=== PATIENT | female | born 1935 | race Caucasian/White ===

== ENCOUNTER 2018-10-01 22:22 | Observation (INO) ==
[2018-10-01] MEDS ORDERED: CATAPRES PO ONE (22:46)
[2018-10-01] MEDS ORDERED: APRESOLINE IV ONE (22:49)
[2018-10-01] MEDS ORDERED: CATAPRES ONE (22:54)
--- NOTE | 2018-10-01 22:56 | PROVIDER DOCUMENTATION ---
HPI-General Adult - General Chief Complaint: B/P Problems Stated Complaint: B/P 253/95 @2140 Time Seen by Provider: 10/01/18 22:45 Source: patient Allergies/Adverse Reactions: Patient Allergies Allergy/AdvReac Type Severity Reaction Status Date / Time Penicillins Allergy Severe HIVES Verified 09/18/17 17:48 Home Medications: Home Medication List Medication Instructions Recorded Confirmed Last Taken Type Risperidone [Risperdal] 1.5 mg PO HS 12/16/12 08/10/18 09/29/17 History Atorvastatin Calcium [Lipitor] 40 mg PO DAILY 09/18/17 08/10/18 09/29/17 History Cyanocobalamin (Vitamin B-12) 1 tab PO DAILY 09/19/17 08/10/18 09/29/17 History [Vitamin B-12] Ergocalciferol (Vitamin D2) 50,000 unit PO DIRECTED 09/19/17 08/10/18 09/29/17 History [Vitamin D2] Oxybutynin Chloride [Oxybutynin 10 mg PO DAILY 09/19/17 08/10/18 09/29/17 History Chloride ER] Psyllium [Metamucil Powder Packet] 1 packet PO EVERY OTHER DAY 09/19/17 08/10/18 09/29/17 History Omeprazole [Prilosec] 40 mg PO DAILY 09/20/17 08/10/18 09/29/17 History Apixaban [Eliquis] 5 mg PO BID #60 tab 09/23/17 08/10/18 09/29/17 Rx Metoprolol Succinate E.r. [Toprol 1 tab PO BID #60 tab 09/23/17 08/10/18 09/29/17 Rx Xl] Amiodarone [Cordarone] 200 mg PO DAILY 09/29/17 08/10/18 09/29/17 History Amlodipine Besylate 1 tab PO DAILY 08/10/18 08/10/18 Unknown History Hydrochlorothiazide 1 tab PO DAILY 08/10/18 08/10/18 Unknown History Levothyroxine [Synthroid] 1 tab PO DAILY 08/10/18 08/10/18 Unknown History Prednisone 20 mg PO DAILY #3 tab 08/10/18 Unknown Rx - History of Present Illness -Gen Adult Nature of Presenting Problems: 82 YOF PRESENTS WITH C/O HTN, BLURRED VISION AND HEADACHE SHE REPORTS HER PCP HAS BEEN ADJUSTING HER BP MEDICATIONS AND THE LAST WEEK HER BP HAS BEEN > 200 SINCE LAST WEEK. SHE DEVELOPED BLURRED VISION TODAY AND HER DAUGHTERS BROUGHT HER IN TO THE ER. SHE DENIES CP, SOB, FEVER, CHILLS, N/V/D, FOCAL WEAKNESS. Location of Pain/Injury: reports: none Quality of Pain: reports: none Onset/Duration: reports: 4-6 hours ago (BLURRED VISION), 1 week ago (HTN) Timing: reports: still present Context/Activities at Onset: reports: light activity Modifying Factors: improves with: nothing Associated Symptoms: reports: denies symptoms Similar Symptoms Previously?: No Recently seen or treated by another doctor?: Yes (PCP) Review of Systems - Adult - REVIEW OF SYSTEMS - ADULT Constitutional: reports: no symptoms reported. denies: see HPI, chills, fever, fatique, night sweats, weight gain, weight loss, other Eyes: reports: see HPI, blurred vision. denies: no symptoms reported, dischar ge, dry eyes, decreased vision, double vision, eye pain, redness, other Ears, Nose, Mouth & Throat: reports: no symptoms reported. denies: see HPI, ear discharge, ear pain, hearing loss, tinnitus, epistaxis, sinus problem, nose pain, loose teeth, mouth/dental pain, mouth swelling, hoarseness, throat pain, throat swelling, other Cardiovascular: reports: no symptoms reported. denies: see HPI, chest pain, edema, heart murmur, irregular heart rate, orthopnea, palpitations, poor circulation, PND, syncope, other Respiratory: reports: no symptoms reported. denies: see HPI, chronic cough, cough, dyspnea on exertion, excessive sputum production, hemoptysis, pleurisy, shortness of breath, wheezing, other Gastrointestinal: reports: no symptoms reported. denies: see HPI, abdominal pain, hematemesis, constipation, diarrhea, difficulty swallowing, frequent heartburn, nausea, poor appetite, rectal bleeding, vomiting, other Genitourinary: reports: no symptoms reported. denies: see HPI, dysuria, discharge, frequency, flank pain, frequent UTI's, hematuria, hesitency, inco ntinence, urinary retention, urgency, other Musculoskeletal: reports: no symptoms reported. denies: see HPI, bone pain, back pain, frequent leg cramps, joint pain, joint swelling, muscle aches, muscle weakness, neck pain, other Integumentary: reports: no symptoms reported. denies: see HPI, hives, hair loss, itching, mole changes, nail changes, rash, skin sores/ulcer, skin thickening, other Neurological: reports: headache/migraines. denies: no symptoms reported, see HPI, ataxia, dizziness/vertigo, loss of balance, numbness, paresthesia, seizure, slurred speech, syncope, tremors, other Psychiatric: reports: no symptoms reported. denies: see HPI, anxiety, anti- depressant use, alcohol/drug dependence, depression, emotional problems, insomnia, panic attacks, suicidal thoughts, other Endocrine: reports: no symptoms reported. denies: see HPI, change in skin pigment, excessive sweating, goiter, cold intolerance, heat intolerance, increased hunger, increased thirst, polyuria, other Hematologic/Lymphatic: reports: no symptoms reported. denies: see HPI, blood clots, easy bruising, low blood count, lymphedema, prolonged bleeding, swollen lymph nodes, transfusions, other Allergic/Immunologic: reports: no symptoms reported. denies: see HPI, allergic reactions, allergic rhinitis, asthma, eczema, food allergy, frequent infections, hay fever, hives, positive PPD, urticaria, other Past History - Adult - PAST MEDICAL HISTORY-ADULT Review of Records: reports: Nursing Assessment Review, Social history reviewed & non-contributory. Major Childhood Illnesses: reports: other Cardiovascular: reports: A-Fib, HTN, hyperlipidemia Respiratory: reports: denies history Gastrointestinal: reports: GERD Obstetrical/Gynecological: reports: denies history Genitourinary: reports: denies history Musculoskeletal: reports: denies history Neurological: reports: denies history Endocrine/Immune: reports: denies history Other Conditions: reports: denies history - PRIOR SURGERIES/PROCEDURES Surgical/Procedure History: reports: cholecystectomy - IMMUNIZATION STATUS Childhood Immunizations: See Nurse Assessment Flu Vaccine: See Nurse Assessment - FAMILY HISTORY Family History: reviewed, not pertinent Physical Exam-General - PHYSICAL EXAM-ADULT Initial Vital Signs Reviewed: Yes - CONSTITUTIONAL General Appearance: appears well, alert, no apparent distress - EYES Eyes: PERRL/EOMI - HEAD, EARS, NOSE, MOUTH & THROAT HENMT: normocephalic/atraumatic, moist mucous membranes, normal ENT inspection - NECK Neck: non-tender, full range of motion, supple - RESPIRATORY Respiratory: chest non-tender, lungs clear, normal breath sounds, no pleuratic chest pain, no respiratory distress - CARDIOVASCULAR Cardiovascular: normal peripheral pulses, regular rate, rhythm, no edema, no gallop, no JVD, no murmur - GASTROINTESTINAL (ABDOMEN) Abdominal Exam: normal bowel sounds, non tender, soft - LYMPHATIC Lymphatic: no adenopathy - MUSCULOSKELETAL Back Exam: normal inspection Extremity: normal range of motion, non-tender, normal gait - SKIN Integumentary: normal color, normal turgor, warm/dry - NEUROLOGIC Neurologic: grossly normal - PSYCHIATRIC Psych/Mental Status: normal mood/affect, oriented x 3 Progress - PLAN OF CARE/RESULTS Progress/Plan/Lab Results: Vital Signs - 8 hr 10/01/18 22:25 Temperature 98.0 F Pulse Rate 73 Respiratory Rate 18 Blood Pressure 239/108 O2 Sat by Pulse Oximetry 97 Orders Category Date Time Status Saline Loc NOW Care 10/01/18 22:[address] HEAD W/O CONTRAST [CT] Stat Exams 10/01/18 22:46 Ordered CBC WITH ELECTRONIC DIFF [HEME] Stat Lab 10/01/18 22:46 Uncollected COMPREHENSIVE METABOLIC PANEL [CHEM] Stat Lab 10/01/18 22:46 Uncollected PROTIME WITH INR [COAG] Stat Lab 10/01/18 22:46 Uncollected PTT [COAG] Stat Lab 10/01/18 22:46 Uncollected TROPONIN T Stat Lab 10/01/18 22:46 Ordered Clonidine [Catapres] Med 10/01/18 22:46 Stop Req 0.1 mg PO NOW ONE Hydralazine [Apresoline] Med 10/01/18 22:49 Once 20 mg IV NOW ONE EKG [EKG] Stat Ther 10/01/18 22:29 Ordered EKG [EKG] Stat Ther 10/01/18 22:46 Ordered 0015: DISCUSSED PRESENTATION INCLUDING EARLIER BLURRED VISION, BP ON ARRIVAL, HOME BP'S, LABS AN CURRENT BP WITH DR LEVY. SHE RECOMMENDS DISCHARGE WITH FOLLOW UP WITH PCP. THE PATIENT IS IN AGREEMENT WITH THIS PLAN, ARE HER DAUGHTERS AT BEDSIDE Result Diagrams: 10/01/18 23:08 10/01/18 23:08 - REASSESSMENT Reassessment #1 Time Reassessed: 00:00 (PT DENIES ALL SYMPTOMS CURRENTLY, SHE IS REQUESTING DC AFTER CT RESULTS ) Status: improving - EKG 1 Time of EKG reading by physician:: 22:49 EKG Read and Signed by:: Fawn Levy EKG Interpretation (*Must complete 3 of following elements*): Abnormal Rate: 60 Rhythm: ATRIAL PACED Pharr: normal QRS: RBB ND Interval: normal ST Wave: normal - CT/MRI 1 CT Study: Head Impression: Abnormal (MILD NONSPECIFIC PERIVENTRICULAR DEEP WHITE MATTER DISEASE ENCEPHALOMALACIA R TEMPORAL LOBE. THIS REPRESENTS OLD ISCHEMIC EVENT) Departure - Departure Date of Disposition Decision: 10/02/18 Time of Disposition Decision: 00:25 DIAGNOSIS: Hypertension Disposition: HOME 01 Certified Medical Emergency: Emergent Condition: Stable Additional Freetext Instructions: ED Follow Up Instructions:CALL YOUR PCP IN THE MORNING IF YOU DEVELOP NEW SYMPTOMS INCLUDING CP, SEVERE HEADACHE, BLURRED VISION OR OTHER SYMPTOMS RETURN TO THE ER You have been treated by a care provider in the Emergency Department. These instructions are being provided to you so you can have an understanding of how to care for yourself upon discharge. Upon discharge from the Emergency Department, you are responsible for making arrangements for follow-up care by a physician of your choice. Take all prescribed medications as directed. Return to the Emergency Department immediately for any new or worsening symptoms. You may call the Physician Referral phone number at [phone] to obtain a list of Physicians who are taking new patients. Referrals and Follow-Ups: Mak Camara MD [Primary Care Provider] - Discharge Education: Hypertension, [id number] - Critical Care Note This patient required my direct & personal management of CC.: No Attestation - Physician/ OWEN Attestation Patient care was provided by Advanced Practice Provider:: Yes Advanced Practice Provider:: Lilly Fry Advanced Practice Provider documentation review:: The Mid-level provider documentation, treatment plan and medical decision making was reviewed by the physician who agrees with all treatment and medical decision making by the MLP. The physician spent face to face time with patient:: No Advanced Practice Provider documentation review:: Supervising physician onsite and consulted in the evaluation and care of this patient. The physician did not have a face to face encounter with the patient.
[2018-10-01 23:28] LABS: BASO# 0.03 X1000 (0.0-0.2); BASO% 0.7 % (0.0-0.8); EOS# 0.13 X1000 (0.0-0.7); EOS% 2.9 % (0.0-10.0); HEMATOCRIT 38.2 % (37.0-47.0); LYMPH# 0.89 X1000 (1.2-3.4); MCH 28.8 PG (27-31); MCV 84.5 FL (81-99); MONO# 0.37 X1000 (0.11-0.59); MONO% 8.3 % (1.7-9.3); MPV 10.7 FL (7.4-10.4); NEUT# 3.02 X1000 (1.4-6.5); NEUT% 68.1 % (42.2-75.2); PLT 134 X1000 (130-400); RBC 4.52 XMIL (4.2-5.4); RDW 13.6 % (11.5-14.5); WBC 4.44 X1000 (4.8-10.8)
--- NOTE | 2018-10-01 23:43 | EKG Report ---
Test Performed on : 10/01/2018 10:49:40 PM Test Reason : HTN, BLURRED VISIO Blood Pressure : / mmHG Vent. Rate : 060 BPM Atrial Rate : 060 BPM P-R Int : 170 ms QRS Dur : 146 ms QT Int : 482 ms P-R-T Axes : 079 022 012 degrees QTc Int : 482 ms Poor data quality, interpretation may be adversely affected Atrial-paced rhythm Right bundle branch block Abnormal ECG When compared with ECG of 20-DEC-2017 00:25, Criteria for Anterior infarct are no longer present Criteria for Inferior infarct are no longer present Unconfirmed Result
[2018-10-01 23:49] LABS: AGAP 9; ALBUMIN 4.2 g/dL (3.5-5.0); ALKALINE PHOSPHATASE 113 U/L (32-104); BUN 12 mg/dL (8-22); CALCIUM 8.4 mg/dL (8.8-10.2); CHLORIDE 106 mmol/L (98-107); COSMO 282; CREATININE 0.7 mg/dL (0.5-0.9); ESTIMATED GFR > 60; GLUCOSE 122 mg/dL (70-104); GOT 23 U/L (10-30); GPT 16 U/L (10-36); POTASSIUM 3.9 mmol/L (3.5-5.1); SODIUM 141 mmol/L (136-145); TCO2 26 mmol/L (25-35); TOTAL PROTEIN 6.3 g/dL (6.3-8.3)
[2018-10-01 23:55] LABS: INR 1.06; PROTIME 14.3 Seconds (11.0-16.0)
[2018-10-01 23:56] LABS: PTT 30.9 Seconds (22.3-41.8)
[2018-10-02] MEDS ORDERED: TYLENOL PO ONE (00:54)
[2018-10-02] MEDS ORDERED: ZOFRAN IV ONE (01:24)
[2018-10-02] MEDS ORDERED: APRESOLINE IV PRN (04:51)
[2018-10-02 06:19] LABS: BILIRUBIN URINE NEGATIVE (NEGATIVE); BLOOD URINE NEGATIVE (NEGATIVE); CLARITY SL. CLOUDY (CLEAR); COLOR YELLOW; GLUCOSE URINE NEGATIVE (NEGATIVE); KETONE URINE 1+(Small) mg/dL (NEGATIVE); LEUKOCYTES URINE NEGATIVE (NEGATIVE); NITRITE URINE NEGATIVE (NEGATIVE); PROTEIN URINE NEGATIVE (NEGATIVE); UROBILINOGEN URINE NORMAL
[2018-10-02 06:20] LABS: URINE BACTERIA 4+ /HFP
[2018-10-02 06:22] LABS: URINE CAST NONE SEEN /LPF; URINE CRYSTAL NONE SEEN /HPF; URINE EPITHELIAL CELLS <10 /HPF (<10); URINE RBC <10 /HPF (<10); URINE SOURCE CLEAN CATCH; URINE YEAST NONE SEEN /HPF
--- NOTE | 2018-10-02 07:15 | Diag Imaging Result Doc PS360 ---
EXAM: CT HEAD W/O CONTRAST - 10/01/2018 HISTORY: HTN, BLURRED VISION TECHNIQUE: CT head without contrast COMPARISON: 12/20/2017 FINDINGS: There is encephalomalacia at the right temporal lobe which is stable and compatible with old infarct. There are mild chronic microvascular ischemic changes. There is no indication of recent infarct, although acute infarcts may not be immediately visible. There is no evidence of intracranial hemorrhage, mass effect, midline shift, or hydrocephalus. There is no evidence of skull fracture. Visualized portions of paranasal sinuses and mastoid air cells appear clear. IMPRESSION: Chronic ischemic changes similar to prior. No visible acute intracranial abnormality. The on-call radiologist provided preliminary results at 11:46 PM on 10/01/2018. This exam was performed using automated exposure control, adjustment of mA or kV according to patient size, and/or use of iterative reconstruction technique. Electronically signed by Romario Silva 10/02/2018 7:13 AM
--- NOTE | 2018-10-02 07:55 | EKG Report ---
Test Performed on : 10/02/2018 07:39:38 AM Test Reason : bp high Blood Pressure : / mmHG Vent. Rate : 081 BPM Atrial Rate : 081 BPM P-R Int : 184 ms QRS Dur : 128 ms QT Int : 470 ms P-R-T Axes : 059 069 003 degrees QTc Int : 545 ms Normal sinus rhythm. Right bundle branch block Septal infarct , age undetermined Abnormal ECG When compared with ECG of 01-OCT-2018 22:49, (Unconfirmed) Sinus rhythm. has replaced Electronic atrial pacemaker QT has lengthened Confirmed by Tony Suarez MD ([id number]) on 10/06/2018 11:28:54 AM
--- NOTE | 2018-10-02 08:12 | Diag Imaging Result Doc PS360 ---
EXAM: CHEST-PORTABLE - 10/02/2018 HISTORY: "cough" TECHNIQUE: Portable chest COMPARISON: 12/20/2017 FINDINGS: Heart size is within normal limits. There is transvenous cardiac pacemaker again seen. There is mild left lower lung linear atelectasis or scarring. There is mild prominence of interstitial markings compared to prior, most prominent on the right. There is no dense consolidation, pleural effusion, or pneumothorax identified. IMPRESSION: Apparent mild interstitial infiltrates, most conspicuous on the right. Electronically signed by Romario Silva 10/02/2018 8:10 AM
[2018-10-02] MEDS ORDERED: TESSALON PO PRN (08:39)
[2018-10-02] MEDS: THERA M PLUS PO SCH (09:46)
[2018-10-02] MEDS: TOPROL XL PO SCH ×2 (09:46→20:46)
[2018-10-02] MEDS: VITAMIN B-12 PO SCH (09:46)
[2018-10-02] MEDS: TYLENOL PO PRN ×2 (09:47→20:55)
[2018-10-02] MEDS: SYNTHROID PO SCH (09:47)
[2018-10-02] MEDS: ELIQUIS PO SCH ×2 (09:47→20:45)
--- NOTE | 2018-10-02 12:46 | HISTORY AND PHYSICAL ---
PRIMARY CARE PROVIDER: DR. Camara. CHIEF COMPLAINT: Headache, high blood pressure. HISTORY OF PRESENT ILLNESS: Ms. Lange is an 82-year-old, female who carries a past medical history of atrial fibrillation, hypertension, hyperlipidemia, GERD, chronic UTIs, a right internal carotid artery with 100% occlusion, who reported to the ED complaining of BP problems and headache as well as dizziness and blurred vision. She reported her primary has been adjusting her blood pressure medications. In the last week, her blood pressure had been greater than 200. Initially, after medications, the patient's symptoms resolved and was requesting to be discharged home. However, shortly after midnight, the patient's blood pressure went back up again and she was admitted for hypertensive urgency. We will continue her back on her home metoprolol and continue with p.r.n. Apresoline. PAST MEDICAL HISTORY: 1. Hypertension. 2. PVD. 3. Hyperlipidemia. 4. Glaucoma. 5. Acid reflux. 6. Chronic insomnia. 7. 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 8. Vitamin B12 deficiency. 9. Vitamin D deficiency. 10. Overactive bladder. 11. Chronic UTIs. 12. Atrial fibrillation. PAST SURGICAL HISTORY: 1. Direct cardioversion. 2. Cataract surgery. 3. Cholecystectomy. 4. Benign polyps in the colon. 5. Pacemaker placement 1 year ago. SOCIAL HISTORY: She is a . She has 3 children. She is retired. No alcohol, tobacco, or illicit drug use. FAMILY HISTORY: Father had sudden with heart disease. HOME MEDICATIONS: 1. Vitamin D2 5000 units p.o. as directed. 2. Eliquis 5 mg p.o. b.i.d. 3. Lipitor 40 mg p.o. at bedtime. 4. Vitamin B12 one tablet p.o. daily. 5. Synthroid 1 tablet p.o. daily. 6. Toprol-XL 25 mg p.o. b.i.d. 7. Centrum tablet 1 each p.o. daily. 8. Prilosec 40 mg p.o. daily. 9. Oxybutynin 10 mg p.o. at bedtime. 10. Risperdal 1.5 mg p.o. at bedtime. ALLERGIES: Allergy to penicillin, allergy to Levaquin that causes tendonitis. PHYSICAL EXAMINATION: VITAL SIGNS: Temperature is 98.4 degrees, heart rate 61, respirations 18, blood pressure 132/60, O2 saturation is 93% on room air. GENERAL: Ms. Lange is an 82-year-old, female who is lying in the bed and in no acute distress. We were trying to ask her questions directly. However, both daughters in the room continue to speak up for her. HEENT: Atraumatic, normocephalic. PERRL. NECK: Supple. Trachea midline. CARDIOVASCULAR: S1, S2 appreciated. No murmurs, gallops, rubs noted. RESPIRATORY: Lung sounds clear bilaterally. ABDOMEN: Soft, nontender, nondistended. Positive bowel sounds. EXTREMITIES: No signs of clubbing or cyanosis. NEUROLOGIC: The patient is awake, alert, oriented. She will answer questions when daughters allow. DIAGNOSTIC DATA: 1. Head CT: Chronic ischemic changes similar to prior. No visible acute intracranial abnormality. 2. EKG: Normal sinus rhythm with a right bundle branch block. 3. Left lower lung linear atelectasis or scarring, most prominent on the right. No dense consolidations, pleural effusions, or pneumothorax identified. LABORATORY DATA: White count 4, hemoglobin and hematocrit 13 and 38, platelet count is 134,000. Sodium 141, potassium 3.9, BUN 12, creatinine 0.7, blood glucose is 122. Urinalysis shows 4+ bacteria. Negative for nitrites. ASSESSMENT AND PLAN: 1. Accelerated hypertension. We will continue with home medications and as needed Apresoline for a systolic blood pressure greater than 190 and diastolic pressure greater than 110. 2. Chronic urinary tract infections. The patient does have an allergy to penicillin as well as Levaquin that causes tendonitis. She is not currently complaining of any urinary symptoms. We will await urine culture for now as the patient does not have an elevated white count or fever. Again, no urinary complaints and had just finished a round of ciprofloxacin. 3. Mild congestive heart failure history. We will monitor strict intakes and outputs. 4. Atrial fibrillation/flutter, status post permanent pacemaker placement. 5. Right internal carotid artery with 100% occlusion. 6. Further recommendation to follow physician evaluation, laboratory and diagnostic data. Dictated by ARSEN Lazaro for Ken Villasenor MD cc: MD Dr. Jax Galan
[2018-10-02] MEDS ORDERED: DITROPAN XL PO SCH (21:00)
[2018-10-02] MEDS ORDERED: RISPERDAL PO SCH (21:00)
[2018-10-02] MEDS ORDERED: LIPITOR PO SCH (21:00)
--- NOTE | 2018-10-02 21:53 | HISTORY AND PHYSICAL ---
ADDENDUM: The patient is a very pleasant 82-year-old female who presented to the hospital with a headaches noting that her blood pressures were elevated. They were in the 200/100 range at home and when she 1st presented to the ER. Currently, her blood pressures are 132/70 and are stable as she was given medications in the ER for this. Discussed with the daughters, that it is impossible to determine why someone's blood pressure elevated and then returned back to normal. Currently 130s over 60s are a very good blood pressure for an 82-year-old. Does have a history of chronic urinary infections and currently has zero urinary complaints. In fact, just finished a round of Cipro. We were going to send her urine for culture before placing her prophylactically on an antibiotic. She has right internal carotid blockage at 100%. We are going to watch her in the hospital, watch her blood pressures. Assuming they are stable and her urine culture remains negative, hopefully she can discharge home over the next day or so. cc: Ken Villasenor MD MTDD
[2018-10-03] MEDS: SYNTHROID PO SCH (06:11)
[2018-10-03] MEDS ORDERED: PRILOSEC PO SCH (07:00)
[2018-10-03] MEDS ORDERED: PRINIVIL PO SCH (09:00)
[2018-10-03] MEDS: THERA M PLUS PO SCH (09:35)
[2018-10-03] MEDS: ELIQUIS PO SCH (09:35)
[2018-10-03] MEDS: VITAMIN B-12 PO SCH (09:35)
[2018-10-03] MEDS: TOPROL XL PO SCH (09:35)
[2018-10-03 11:04] VITALS: BP 181/65
--- NOTE | 2018-10-04 04:06 | DISCHARGE SUMMARY ---
ADMISSION DATE: 10/02/2018 DISCHARGE DATE: 10/03/2018 CONSULTATIONS: None. PERTINENT PROCEDURES: 1. Head CT, chronic ischemic changes similar to prior, no visible acute intracranial abnormality. 2. Chest x-ray, mild left lower lung linear atelectasis or scarring. DISCHARGE DIAGNOSES: 1. Accelerated hypertension. They added lisinopril to her antihypertensive regimen and has had some improvement with her blood pressures slowly. We will have her follow up with Dr. Camara as they have already been making adjustments to her pain medications over this past week. 2. Chronic urinary tract infection. The patient did show some bacteria in her urine. However, she had no urinary complaints and just finished a round of Cipro. We will continue to trend her urine culture that is still currently pending and we can call her and antibiotic if it grows anything. 3. Mild congestive heart failure history without exacerbation. 4. Atrial fibrillation and flutter, status post permanent pacemaker. 5. 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 HOSPITAL COURSE: Briefly, Ms. Lange is a pleasant 82-year-old female who carries a past medical history of atrial fibrillation, status post pacemaker, hypertension, hyperlipidemia, GERD, chronic UTIs who just finished treatment of Cipro, right internal carotid artery with 100% occlusion, who presented to the ED complaining of BP problems as well as headache, and dizziness and blurred vision. She reported her primary care has been adjusting her blood pressure medications and that through the course of the week they had been greater than 200. Initially while in the ED, they got her blood pressure better under control. She was about to be discharged. They checked her blood pressure again and it came up slightly so she was admitted to the floor at [facility], continued on her home antihypertensives and placed on p.r.n. We added lisinopril to her regimen. Her blood pressures have pretty much stabilized. Patient does report she has been under some recent stressors as having her daughter recently move in with her and getting used to those adjustments. She feels that this could be contributing to some of her issues with her blood pressures as well as having some changes made by her primary care provider. We do feel like she is stable for discharge home today to continue to follow up with her primary care provider to continue with these adjustments and continue to monitor her blood pressures at home. She does have a very supportive daughters who are at her bedside. VITAL SIGNS: At time of her discharge, temperature is 98.6 degrees, heart rate 60, respirations 16, blood pressures have been anywhere from 130s over 60s and since adding medications have been anywhere from 150s, 160s, 170s and 180s and up to the 190s and then back down again. O2 saturation stable at 97% on room air. DISCHARGE DIET: Healthy heart. DISCHARGE MEDICATIONS: 1. Lipitor 40 mg p.o. at bedtime. 2. Oxybutynin chloride 10 mg p.o. at bedtime. 3. Centrum Silver 1 each p.o. daily. 4. Prilosec 40 mg p.o. daily. 5. Risperdal 1.5 mg p.o. at bedtime. 6. Synthroid 100 mcg p.o. daily. 7. Toprol-XL 25 mg p.o. b.i.d. 8. Vitamin B12 1000 mcg tablet p.o. daily. 9. Vitamin D2 50,000 units p.o. as directed. 10. Eliquis 5 mg p.o. b.i.d. 11. Prinivil 10 mg p.o. daily. FOLLOWUP: Ms. Lange is being discharged back home with family. She is to return to the ED if she develops new symptom with chest pain, severe headache, blurred vision, or other symptoms that she had when she was admitted. She is to take all medications as prescribed. She can return to the ED or call 911 for any worsening of symptoms. Dictated by ARSEN Lazaro for Ken Villasenor MD cc: MD Dr. Jax Galan
--- NOTE | 2018-10-04 05:53 | DISCHARGE SUMMARY ---
ADMISSION DATE: 10/02/2018 DISCHARGE DATE: 10/03/2018 ADDENDUM: Patient seen and examined by myself. Full note dictated and discussed with nurse practitioner. On discharge, patient is awake, alert. She is in no distress. Overall, she is feeling better. Her blood pressures are much improved to 159/66 from 239/108. I expect that acute stress reaction was the cause of her elevated blood pressure and this most likely is from her current social situation. Regardless, her blood pressures are better. She has no complaints. We will add lisinopril 10 mg on discharge and we will discharge her home. cc: Ken Villasenor MD
== END 2018-10-03 11:25 | disposition home or self-care (01) ==
LOC: P.ED 22:22 → P.EDIPHOLD 22:22 → P.MEDSURG 10-02 03:49
PROVIDERS: ATTEND Family Medicine

== ENCOUNTER 2018-10-23 10:46 | Inpatient (IN) ==
[2018-10-23] MEDS ORDERED: TYLENOL PO PRN (12:34)
--- NOTE | 2018-10-23 12:50 | EKG Report ---
Test Performed on : 10/23/2018 12:41:55 PM Test Reason : SVT Blood Pressure : / mmHG Vent. Rate : 113 BPM Atrial Rate : 113 BPM P-R Int : 000 ms QRS Dur : 158 ms QT Int : 414 ms P-R-T Axes : 000 -78 091 degrees QTc Int : 567 ms Ventricular-paced rhythm with occasional premature ventricular complexes. Abnormal ECG When compared with ECG of 02-OCT-2018 07:39, Electronic ventricular pacemaker has replaced Sinus rhythm. Confirmed by Catrina Webber MD ([id number]) on 10/24/2018 12:10:30 PM
[2018-10-23 13:51] LABS: BASO# 0.02 X1000 (0.0-0.2); BASO% 0.4 % (0.0-0.8); EOS% 2.1 % (0.0-10.0); HEMATOCRIT 40.5 % (37.0-47.0); HEMOGLOBIN 13.6 g/dL (12.0-16.0); LYMPH# 1.05 X1000 (1.2-3.4); LYMPH% 22.3 % (20.5-51.1); MCH 29.1 PG (27-31); MCHC 33.6 g/dL (33-37); MCV 86.5 FL (81-99); MONO# 0.39 X1000 (0.11-0.59); MONO% 8.3 % (1.7-9.3); MPV 11.1 FL (7.4-10.4); NEUT# 3.15 X1000 (1.4-6.5); NEUT% 66.9 % (42.2-75.2); PLT 152 X1000 (130-400); RBC 4.68 XMIL (4.2-5.4); WBC 4.71 X1000 (4.8-10.8)
[2018-10-23 13:59] LABS: AGAP 8; ALB/GLOB RATIO 1.6; ALBUMIN 3.6 g/dL (3.5-5.0); ALKALINE PHOSPHATASE 104 U/L (32-104); BUN 12 mg/dL (8-22); CALCIUM 8.6 mg/dL (8.8-10.2); CHLORIDE 106 mmol/L (98-107); CK PROFILE 60 U/L (24-173); COSMO 275; CREATININE 0.8 mg/dL (0.5-0.9); ESTIMATED GFR > 60; GLUCOSE 98 mg/dL (70-104); GOT 18 U/L (10-30); GPT 13 U/L (10-36); POTASSIUM 3.8 mmol/L (3.5-5.1); SODIUM 138 mmol/L (136-145); TCO2 24 mmol/L (25-35); TOTAL BILIRUBIN 0.55 mg/dL (0.20-1.00); TOTAL PROTEIN 5.9 g/dL (6.3-8.3)
[2018-10-23] MEDS ORDERED: CARDIZEM IV ONE (14:16)
--- NOTE | 2018-10-23 14:31 | EKG Report ---
Test Performed on : 10/23/2018 2:16:38 PM Test Reason : aflutter Blood Pressure : / mmHG Vent. Rate : 121 BPM Atrial Rate : 121 BPM P-R Int : 142 ms QRS Dur : 130 ms QT Int : 336 ms P-R-T Axes : 247 104 047 degrees QTc Int : 477 ms Unusual P axis, possible ectopic atrial tachycardia. Right bundle branch block T wave abnormality, consider lateral ischemia Abnormal ECG When compared with ECG of 23-OCT-2018 12:41, (Unconfirmed) Ectopic atrial rhythm. has replaced Electronic ventricular pacemaker Confirmed by Akbar DEWITT MAline Willis ([id number]) on 10/24/2018 12:10:36 PM
--- NOTE | 2018-10-23 14:50 | CARDIOLOGY CONSULTATION ---
DATE: 10/23/2018 HISTORY: Ms. Lange is an 82-year-old, lady with a history of atrial flutter/fibrillation. Underwent a permanent pacemaker implantation last year. Had atrial flutter and cardioversion on 09/18/2017 when she had the permanent pacemaker implantation. That was in 10/01/2017. Following that, there was a discussion about ablation in the electrophysiology office should arrhythmias recur. She had been doing well. Over the last couple of days, she has noticed increasing episodes of palpitations for the last 3 days, not associated with any chest pain. She was also admitted in [facility] on October 04 with accelerated hypertension. With adjustment of medications, her blood pressures have been under control. She denies chest pain suggestive of angina. There is no orthopnea or paroxysmal nocturnal dyspnea. REVIEW OF SYSTEMS: A 14 point review of systems was done. Gastrointestinal System: There is no history of nausea. There is no history of vomiting or diarrhea. There is no history of hematemesis or melena. Central Nervous System: No focal weakness to suggest a CVA or TIA. Genitourinary System: There is no dysuria or hematuria. PAST MEDICAL HISTORY: 1. Hypertension. 2. Atrial flutter, cardioversion in 2018, subsequently had pauses noted. 3. Had a permanent pacemaker implanted, [employer] device, on 10/01/2017. 4. Sick sinus syndrome. 5. Hypertension. 6. Hyperlipidemia. 7. Carotid disease. Complete occlusion of the right internal carotid artery by MRA, MRI in 2014. 8. Peripheral edema. 9. Gastroesophageal reflux disease. 10. Anticoagulation therapy. HOME MEDICATIONS: Eliquis 5 mg p.o. b.i.d., Lipitor 40, Synthroid, Toprol-XL 25 b.i.d., Prilosec 40, risperidone 1.5 mg at bedtime, vitamin D. ALLERGIES: She is allergic to penicillin, allergic to Levaquin that causes tendonitis. SOCIAL HISTORY: She does not smoke. Does not drink. PAST SURGICAL HISTORY: Other surgical history includes cataract surgery, cholecystectomy, benign polypectomy. PHYSICAL EXAMINATION: Vital Signs: Blood pressure was 123/66, heart rate 121. First and second heart sounds were heard. There was no S3 gallop. Respiratory System: Normal air entry. There were no crepitations or rhonchi. Abdomen: Soft, nontender. There was no guarding or rigidity. Bowel sounds were heard. Central Nervous System: Alert, was moving all 4 extremities. DIAGNOSTIC DATA: CT of head, chronic ischemic changes. No visible acute intracranial abnormality. EKG, the patient is in atrial flutter, 2:1 conduction, with a baseline right bundle branch block. ASSESSMENT AND PLAN: 1. Ms. Jessy Lange is an 82-year-old, lady with a history of atrial flutter, atrial fibrillation, sick sinus syndrome, status post [employer] permanent pacemaker implantation. Underwent cardioversion in 2018 for atrial flutter. Comes in with complaints of increasing palpitations for the last 3 days. She is currently in atrial flutter, 2:1 block. We will start her on a Cardizem drip. 2. We will get an echocardiogram to reassess cardiac and valvular function in the morning. 3. If she does not convert to sinus rhythm, we will set her up for cardioversion. 4. Anticoagulation therapy. She is on Eliquis 5 mg twice daily. I have not made any changes. 5. As far as further management is concerned, once she is in sinus rhythm, we can set her up to see electrophysiology again for consideration of atrial flutter ablation. The patient states that they had the discussion about this with the electrophysiology physicians in [place]. 6. She has had accelerated hypertension. Her blood pressure is under control and has been under control recently. We will plan on Cardizem and put her on Cardizem by mouth as well following cardioversion. 7. We will check her lab work and a thyroid profile as well. Thank you for the consult. cc: MD Chi Lagos MD
[2018-10-23] MEDS: CARDIZEM 125 MG in NS 100 ML IV SCH (15:20)
[2018-10-23 15:21] LABS: FREE T4 1.47 ng/dL (0.93-1.70); TSH 0.09 uIUmL (0.27-4.20)
--- NOTE | 2018-10-23 22:03 | HISTORY AND PHYSICAL ---
REASON FOR ADMISSION: Palpitations, dizziness, fluctuation of blood pressure. HISTORY OF PRESENT ILLNESS: She is an 82-year-old, white female, who came to my office yesterday with the above symptoms. The patient has a history of atrial fibrillation and flutter. She was very tachycardic. EKG showed flutter with 2:1 block. I gave an extra metoprolol, and tried carotid massage and modified Valsalva maneuver. Symptoms would not get better. I offered her yesterday to go to the hospital. The patient decided to go and see the medications effect. The patient was taking before Cordarone, which was discontinued due to thyroid problems. The patient developed hyperthyroidism. After stopping, thyroid function test came back normal. Nevertheless, the patient also had a pacemaker placed by Dr. Arciniega and controlled the heart rate. Despite, the patient continues to have intermittent palpitations due to atrial flutter, 2:1 block. This morning, patient is feeling dizzy. Admitted directly from my office to the [facility]. Dr. Scales did cardioversion in 2018, with [address] Arciniega was c s s representative. Will start on IV Cardizem drip and will follow up. As a result, a hospital admission was warranted. PAST MEDICAL HISTORY: Right bundle-branch block, diverticulosis, hypertension, acid reflux disease, glaucoma, hyperlipidemia, hypothyroidism, metabolic syndrome, right carotid artery total occlusion, overactive bladder, paroxysmal atrial fibrillation and flutter, status post cardioversion in 2018. PAST SURGICAL HISTORY: Cholecystectomy, permanent pacemaker, cystocele repair, vaginal hysterectomy. ALLERGIES: Reported to penicillin rashes. Cordarone-Hyperthyroidism MEDICINES: In my office, Lipitor 40 mg daily, Eliquis 5 mg p.o. b.i.d., metoprolol 25 p.o. b.i.d., multivitamin 1 tablet daily, Norvasc 5 mg daily, Prilosec 40 daily, Risperdal 3 mg once daily, Synthroid 100 mcg daily, vitamin D 50,000 units once a week. SOCIAL HISTORY: , 3 daughters. No smoking. No alcohol. No drug abuse. FAMILY HISTORY: Father of heart attack at 67. Siblings are 5 brothers. Mother diseased with hardening of the arteries. HEALTH MAINTENANCE: Pneumococcal vaccine 2017, mammography 11/2017, colonoscopy [address] Gibson. REVIEW OF SYSTEMS: HEENT Exam: Lightheaded, dizziness. No vision problem. No earache. No sore throat. Neck: No goiter. No lymphadenopathy. Cardiopulmonary: No chest pain. Palpitations. No PND. No orthopnea. No swelling of legs. Gastrointestinal: No nausea, vomiting, abdominal pain. No altered bowel habits. Genitourinary: No history of dysuria, hesitancy, frequency. No joint pain. Neurologic: No focal symptoms or weakness. PHYSICAL EXAMINATION: VITAL SIGNS: Temperature is 98 degrees, pulse is 122. Hemodynamics are stable. HEENT: Atraumatic, normocephalic. Pupils equal, react to light. TMs are normal. Nose and throat within normal limits. NECK: Supple. No lymphadenopathy. No goiter. CHEST: Bilateral air entry. CARDIOVASCULAR: Irregular heart sounds. GASTROINTESTINAL: Belly is soft, nontender. Good bowel sounds. EXTREMITIES: No peripheral edema, cyanosis. NEUROLOGIC: No obvious neurological deficits. LABORATORY AND DIAGNOSTIC DATA: EKG is atrial flutter, 2:1 block, with wide- complex tachycardia in my office yesterday. CBC: White cell count 4.7, hematocrit 40, platelets 152,000. SMA 7 is normal. Cardiac enzymes normal. ProBNP slightly elevated. Free T4 is normal. ASSESSMENT AND PLAN: 1. An 82-year-old, white female, admitted to the hospital with recurrent atrial flutter, 2:1 block, unable to control with metoprolol. Discontinue Cordarone due to hyperthyroidism. Status post permanent pacemaker. Consider using sotalol. We will discuss with Dr. Scales. In the past, she required cardioversion. 2. Intravenous Cardizem drip. The patient has been taking Eliquis. Reconcile home medications and will follow up. Discussed the plan of care with the family at bedside. Appreciate Cardiology consult. Repeat EKG and follow up on echo. cc: Chi Camara MD [facility]
[2018-10-23] MEDS: ELIQUIS PO SCH (22:19)
[2018-10-23] MEDS: LIPITOR PO SCH (22:20)
[2018-10-23] MEDS: RISPERDAL PO SCH (22:20)
[2018-10-24] MEDS: CARDIZEM 125 MG in NS 100 ML IV SCH (04:24)
--- NOTE | 2018-10-24 07:31 | EKG Report ---
Test Performed on : 10/24/2018 07:02:09 AM Test Reason : aflutter Blood Pressure : / mmHG Vent. Rate : 120 BPM Atrial Rate : 120 BPM P-R Int : 134 ms QRS Dur : 138 ms QT Int : 372 ms P-R-T Axes : 000 103 -31 degrees QTc Int : 525 ms Sinus tachycardia. Right bundle branch block T wave abnormality, consider inferolateral ischemia Abnormal ECG When compared with ECG of 23-OCT-2018 14:16, (Unconfirmed) Sinus rhythm. has replaced Ectopic atrial rhythm. Confirmed by Catrina Webber MD ([id number]) on 10/24/2018 12:11:20 PM
[2018-10-24] MEDS: VITAMIN B-12 PO SCH ×2 (07:56→08:13)
[2018-10-24] MEDS: CENTRUM TABLET PO SCH ×2 (07:56→08:12)
[2018-10-24] MEDS: SYNTHROID PO SCH ×2 (07:57→08:13)
[2018-10-24] MEDS: PRILOSEC PO SCH ×2 (07:57→08:12)
[2018-10-24] MEDS: ELIQUIS PO SCH ×3 (07:57→20:58)
[2018-10-24 08:40] LABS: AGAP 13; BUN 10 mg/dL (8-22); CALCIUM 8.7 mg/dL (8.8-10.2); CHLORIDE 112 mmol/L (98-107); COSMO 291; CREATININE 0.7 mg/dL (0.5-0.9); ESTIMATED GFR > 60; GLUCOSE 116 mg/dL (70-104); MAGNESIUM 1.9 mg/dL (1.5-2.7); POTASSIUM 3.9 mmol/L (3.5-5.1); SODIUM 146 mmol/L (136-145); TCO2 21 mmol/L (25-35)
[2018-10-24 09:49] LABS: INR 1.37; PROTIME 17.1 Seconds (11.0-16.0)
[2018-10-24] MEDS ORDERED: DIPRIVAN 1% ONE (10:22)
[2018-10-24] MEDS ORDERED: ANESTHESIA PB SET 88 IN 5742 ONE (10:23)
[2018-10-24] MEDS ORDERED: NS 1,000 ML ONE (10:23)
[2018-10-24] MEDS ORDERED: XYLOCAINE-MPF 1% 5 ML ONE (10:23)
--- NOTE | 2018-10-24 13:09 | CARDIAC CATH REPORT ---
PROCEDURE NAME: - PROCEDURE PERFORMED: Cardioversion. SUMMARY: The patient was sedated per Anesthesiology with propofol. The patient subsequently underwent synchronous direct current cardioversion with 30 joules biphasic, converting atrial flutter to sinus bradycardia/atrial paced rhythm. The patient tolerated the procedure without apparent complications. CONCLUSIONS: Successful cardioversion, converting atrial flutter to sinus bradycardia/atrial paced rhythm. cc: MD Chi Hall MD
[2018-10-24] MEDS: CARDIZEM CD PO SCH (15:53)
--- NOTE | 2018-10-24 17:16 | ECHO REPORT ---
ORDER DATE: 10/24/2018 ECHOCARDIOGRAPHIC MEASUREMENTS: 1. Interventricular septum 1.4 2. Left ventricular posterior wall 1.0. 3. Diastolic diameter 4.0. 4. Left atrium 3.7. 5. Aorta 3.0. SUMMARY OF THE 2-DIMENSIONAL IMAGIN. Mitral valve was normal. 2. Aortic valve leaflets were trileaflet. 3. Pulmonic valve was normal. 4. Tricuspid valve was normal. 5. Pacing leads are noted in the right chamber. 6. Optison was used to assess left ventricular systolic function. Technically suboptimal study. 7. There is mild tricuspid regurgitation. Peak velocity across the tricuspid valve was 3 m/sec. 8. Pulmonary artery systolic pressure of 50 mmHg. 9. Peak velocity across the aortic valve less than 2 m/sec. There is no aortic stenosis or regurgitation. 10. There is mild mitral regurgitation. 11. Normal left ventricular cavity size. There is left ventricular hypertrophy. Estimated ejection fraction of 65%. 12. There is no pericardial effusion. cc: MD Char Lagos PA Jagan Reddy, MD
--- NOTE | 2018-10-24 20:53 | PROGRESS NOTE ---
DATE: 10/24/2018 SUBJECTIVE: The patient is still in atrial flutter, not better with Cardizem drip, and on followup echocardiography EF is 65%. No pericardial effusion. LABORATORY DATA: PT 17, INR 1.37. SMA 7 is normal. Magnesium 1.9. Free T4 is normal. ASSESSMENT AND PLAN: Recurrent atrial flutter with 2:1 block. Failure of medical treatment. Not able to tolerate Cordarone. Plan is cardioversion today, also antiarrhythmic drugs. Will discuss with kettle skimmer. Continue home medications. Discussed the plan of care with family at bedside and will follow up. LEVEL OF DOCUMENTATION: 25 minutes. cc: Chi Camara MD
[2018-10-24] MEDS: RISPERDAL PO SCH (20:57)
[2018-10-24] MEDS: LIPITOR PO SCH (20:58)
[2018-10-25 07:39] VITALS: BP 158/56
[2018-10-25] MEDS: VITAMIN B-12 PO SCH (08:50)
[2018-10-25] MEDS: PRILOSEC PO SCH (08:50)
[2018-10-25] MEDS: CARDIZEM CD PO SCH (08:50)
[2018-10-25] MEDS: ELIQUIS PO SCH (08:50)
[2018-10-25] MEDS: SYNTHROID PO SCH (08:50)
[2018-10-25] MEDS: CENTRUM TABLET PO SCH (08:50)
--- NOTE | 2018-10-26 16:26 | DISCHARGE SUMMARY ---
ADMISSION DATE: 10/23/2018 DISCHARGE DATE: 10/25/2018 DISCHARGING DIAGNOSES: 1. Recurrent palpitations due to atrial flutter 2:1 block. 2. Right bundle branch block. 3. Diverticulosis. 4. Hypertension. 5. Acid reflux disease. 6. Glaucoma. 7. Hyperlipidemia. 8. Hypothyroidism. 9. Metabolic syndrome. 10. Right internal carotid artery total occlusion. 11. Overactive bladder. 12. Recurrent atrial flutter, failed cardioversion since 2018. 13. History of permanent pacemaker. 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 CONSULTATIONS: Dr. Simental. PROCEDURE: Direct cardioversion 50 joules. BRIEF HISTORY: Please see the H and P that was done on 10/23/2018. In brief, she is an 82-year- old white female admitted to the hospital with recurrent palpitations due to atrial flutter with 2:1 block. Failure of outpatient treatment with beta blockers and Valsalva maneuver of carotid muscles. The patient cannot tolerate Cordarone due to hyperthyroidism. HOSPITAL COURSE: Admitted in step-down unit at [facility] unit, and Cardiology consult was obtained. She was started on Cardizem drip. Failed to convert into sinus. The patient had a cardioversion on the following day. She remains in sinus, and started Cardizem 180 twice a day instead of beta- blockers. Other options were discussed. The patient is anxious to go home. During this admission laboratories as follows: CBC: White cell count 4.7, hematocrit 40, platelets 152,000. PT 17, INR 1.37. Sodium 146, potassium 3.9, chloride 112, BUN 10, creatinine 0.7, glucose 116, calcium 8.7. Cardiac enzymes were negative. ProBNP 2000. Free T4 of 1.47. Echocardiograph report: EF is 65%. No significant valvular heart disease noted. DISCHARGING INSTRUCTIONS: Risperdal 1.5 mg at bedtime, Lipitor 40 daily, vitamin B12 one tablet daily, vitamin D 50,000 units once a week, oxybutynin 10 mg at bedtime, Prilosec 40 daily, Eliquis 5 mg p.o. b.i.d., Synthroid 100 mcg daily, and Centrum Silver 1 tablet daily. Discontinue metoprolol and amlodipine. Changing Cardizem to 180 p.o. b.i.d. We will closely monitor. If fails to improve, we will give a 30-day loop monitor. Other options discussed were Electrophysiology evaluation with . cc: MD Tano Avery MD Ashish K. Basu, MD MTDD
[2018-10-27] MEDS ORDERED: VITAMIN D PO SCH (09:00)
== END 2018-10-25 11:15 | disposition home or self-care (01) | DRG 310 ==
LOC: DIRADM 10:46 → 2N 11:17
PROVIDERS: ADMIT Internal Medicine; ATTEND Internal Medicine

== ENCOUNTER 2019-04-25 17:37 | Inpatient (IN) ==
[2019-04-25] MEDS ORDERED: NS 1,000 ML ONE (18:36)
[2019-04-25] MEDS ORDERED: SODIUM CHLORIDE IV ONE (18:38)
[2019-04-25] MEDS ORDERED: PROTONIX IV ONE (18:41)
[2019-04-25] MEDS ORDERED: SODIUM CHLORIDE 0.9% INJ ONE (18:41)
--- NOTE | 2019-04-25 18:54 | Diag Imaging Result Doc PS360 ---
EXAM: CHEST-1 VIEW HISTORY: POSSIBLE SEPSIS TECHNIQUE: Single view COMPARISON: 10/12/2018 FINDINGS: The lungs are well expanded. The heart is mildly enlarged. Left pacemaker. The vessels are not distended. There are no infiltrates. No effusion identified. IMPRESSION: No pneumonia Electronically signed by Kirt Rod 04/25/2019 6:52 PM
[2019-04-25 19:00] LABS: INR 1.84; PROTIME 21.7 Seconds (11.0-16.0)
[2019-04-25 19:01] LABS: PTT 42.6 Seconds (22.3-41.8)
[2019-04-25 19:05] LABS: BASO# 0.01 X1000 (0.0-0.2); BASO% 0.1 % (0.0-0.8); HEMATOCRIT 39.8 % (37.0-47.0); HEMOGLOBIN 13.6 g/dL (12.0-16.0); IMM GRAN# 0.07 X1000 (0.0-0.04); IMM GRAN% 0.6 % (0.0-0.5); LYMPH# 0.33 X1000 (1.2-3.4); LYMPH% 2.8 % (20.5-51.1); MCH 28.9 PG (27-31); MCHC 34.2 g/dL (33-37); MCV 84.7 FL (81-99); MONO# 0.62 X1000 (0.11-0.59); MONO% 5.3 % (1.7-9.3); MPV 11.4 FL (7.4-10.4); NEUT# 10.71 X1000 (1.4-6.5); NEUT% 91.2 % (42.2-75.2); PLT 113 X1000 (130-400); WBC 11.74 X1000 (4.8-10.8)
--- NOTE | 2019-04-25 19:07 | PROVIDER DOCUMENTATION ---
This chart was entered by Sanjuana Mccoy Scribe, acting as scribe for Madie Alberto MD. HPI-Cardiac General - General Chief Complaint: SEPSIS ALERT Stated Complaint: A FIB Time Seen by Provider: 04/25/19 18:15 Allergies/Adverse Reactions: Patient Allergies Allergy/AdvReac Type Severity Reaction Status Date / Time Penicillins Allergy Severe HIVES Verified 09/18/17 17:48 Home Medications: Home Medication List Medication Instructions Recorded Confirmed Last Taken Type Risperidone [Risperdal] 1.5 mg PO HS 12/16/12 10/23/18 10/22/18 21:00 History Atorvastatin Calcium [Lipitor] 40 mg PO QHS 09/18/17 10/23/18 10/22/18 21:00 History Cyanocobalamin (Vitamin B-12) 1 tab PO DAILY 09/19/17 10/23/18 10/23/18 07:00 History [Vitamin B-12] Ergocalciferol (Vitamin D2) 50,000 unit PO DIRECTED 09/19/17 10/23/18 10/20/18 07:00 History [Vitamin D2] Oxybutynin Chloride [Oxybutynin 10 mg PO QHS 09/19/17 10/23/18 10/22/18 21:00 History Chloride ER] Omeprazole [Prilosec] 40 mg PO DAILY 09/20/17 10/23/18 10/23/18 07:00 History Apixaban [Eliquis] 5 mg PO BID #60 tab 09/23/17 10/23/18 10/23/18 07:00 Rx Levothyroxine [Synthroid] 1 tab PO DAILY 08/10/18 10/23/18 10/23/18 07:00 History Multivitamins/Minerals [Centrum 1 ea PO DAILY 10/02/18 10/23/18 10/23/18 07:00 History Tablet] Diltiazem C.d. [Cardizem C.d] 180 mg PO BID #60 cap 10/25/18 Unknown Rx Review of Systems - Adult - REVIEW OF SYSTEMS - ADULT Constitutional: reports: chills, fatique. denies: fever Eyes: reports: no symptoms reported Ears, Nose, Mouth & Throat: reports: no symptoms reported Cardiovascular: reports: palpitations. denies: chest pain, syncope Respiratory: denies: cough, shortness of breath Gastrointestinal: denies: abdominal pain Genitourinary: reports: no symptoms reported Musculoskeletal: reports: no symptoms reported Integumentary: reports: no symptoms reported Neurological: reports: no symptoms reported Psychiatric: reports: no symptoms reported Endocrine: reports: no symptoms reported Hematologic/Lymphatic: reports: no symptoms reported Allergic/Immunologic: reports: no symptoms reported All Other Systems: Reviewed and Negative Past History - Adult - PAST MEDICAL HISTORY-ADULT Review of Records: reports: Old Records Reviewed, Nursing Assessment Review, Medications Reviewed, Social history reviewed & non-contributory. Major Childhood Illnesses: reports: other Cardiovascular: reports: A-Fib, HTN, hyperlipidemia Respiratory: reports: denies history Gastrointestinal: reports: GERD Obstetrical/Gynecological: reports: denies history Genitourinary: reports: denies history Musculoskeletal: reports: denies history Neurological: reports: denies history Endocrine/Immune: reports: denies history Other Conditions: reports: denies history - PRIOR SURGERIES/PROCEDURES Surgical/Procedure History: reports: cholecystectomy - IMMUNIZATION STATUS Childhood Immunizations: See Nurse Assessment Flu Vaccine: See Nurse Assessment - FAMILY HISTORY Family History: reviewed, not pertinent - SOCIAL HISTORY Living Situation: family Physical Exam-General - PHYSICAL EXAM-ADULT Initial Vital Signs Reviewed: Yes - CONSTITUTIONAL General Appearance: alert, lethargic, other (fatigued) - EYES Eyes: PERRL/EOMI - HEAD, EARS, NOSE, MOUTH & THROAT HENMT: normocephalic/atraumatic, other (dry oral mucosa) - NECK Neck: full range of motion, supple - RESPIRATORY Respiratory: chest non-tender, lungs clear, normal breath sounds - CARDIOVASCULAR Cardiovascular: tachycardia, irregularly irregular - GASTROINTESTINAL (ABDOMEN) Abdominal Exam: normal bowel sounds, soft, tenderness (gen tenderness) - LYMPHATIC Lymphatic: no adenopathy - MUSCULOSKELETAL Back Exam: normal inspection Extremity: normal range of motion, non-tender, normal inspection - SKIN Integumentary: warm/dry. negative: normal color (pale), normal turgor (poor tugor) - NEUROLOGIC Neurologic: grossly normal, no motor/sensory deficits - PSYCHIATRIC Psych/Mental Status: normal mood/affect Progress - PLAN OF CARE/RESULTS Progress/Plan/Lab Results: Vital Signs - 8 hr 04/25/19 17:47 Temperature 98.4 F Pulse Rate 150 H Respiratory Rate 20 Blood Pressure 74/52 O2 Sat by Pulse Oximetry 88 L Laboratory Results - last 24 hr 04/25/19 04/25/19 18:39 18:39 WBC 11.74 H RBC 4.70 Hgb 13.6 Hct 39.8 MCV 84.7 MCH 28.9 MCHC 34.2 RDW Std Deviation 14.0 Plt Count 113 L MPV 11.4 H Immature Gran % (Auto) 0.6 H Neut % (Auto) 91.2 H Lymph % (Auto) 2.8 L [place] % (Auto) 5.3 Eos % (Auto) 0.0 Baso % (Auto) 0.1 Immature Gran # (Auto) 0.07 H Neut # (Auto) 10.71 H Lymph # (Auto) 0.33 L [place] # (Auto) 0.62 H Eos # (Auto) 0.00 Baso # (Auto) 0.01 PT 21.7 H INR 1.84 PTT (Actin FS) 42.6 H Orders Category Date Time Status Cardiac Monitoring NOW Care 04/25/19 17:59 Active IV Insertion NOW Care 04/25/19 17:59 Completed NEWS Score >or=5:Order NEWS Bundle S.O. NOW Care 04/25/19 17:59 Active Notify Provider of NEWS Score NOW Care 04/25/19 17:59 Active CHEST-1 VIEW [RAD] Stat Exams 04/25/19 17:[address] ABDOMEN/PELVIS W/O CONTRAST [CT] Stat Exams 04/25/19 18:40 Ordered BLOOD CULTURE [BLDCUL] Stat Lab 04/25/19 18:46 Ordered CBC WITH DIFF [HEME] Stat Lab 04/25/19 18:39 Completed CK PROFILE [SP CHEM] Stat Lab 04/25/19 18:39 Received COMPREHENSIVE METABOLIC PANEL [CHEM] Stat Lab 04/25/19 18:39 Received INFLUENZA SCREEN A/B Stat Lab 04/25/19 18:45 Received LACTATE, PLASMA [CHEM] Lab 04/25/19 21:00 Uncollected LACTATE, PLASMA [CHEM] Lab 04/26/19 00:00 Uncollected LACTATE, PLASMA [CHEM] Q3H Lab 04/25/19 18:38 Received PROTIME WITH INR [COAG] Stat Lab 04/25/19 18:39 Completed PTT [COAG] Stat Lab 04/25/19 18:39 Completed TROPONIN T HIGH SENSITIVITY Stat Lab 04/25/19 18:39 Received TYPE & SCREEN [BBK] Stat Lab 04/25/19 18:39 Results URINALYSIS W/POSS RFLX CULT [URINALYSIS] Stat Lab 04/25/19 17:59 Uncollected 0.9% Sodium Chloride Inj [Ns] 1,000 ml Med 04/25/19 18:36 Discontinued .ROUTE As directed 0.9% Sodium Chloride Inj [Ns] 1,973.13 ml Med 04/25/19 18:38 Active IV 999 mls/hr Pantoprazole [Protonix] Med 04/25/19 18:41 Discontinued 40 mg IV NOW ONE Sodium Chloride 0.9% Med 04/25/19 18:41 Discontinued 10 ml INJ NOW ONE O2 Per Protocol Stat Oth 04/25/19 17:59 Active EKG [EKG] Stat Ther 04/25/19 18:02 Ordered Result Diagrams: 04/25/19 18:39 - XRAY 1 XRAY Study: Chest Impression: Normal ( EXAM: CHEST-1 VIEW HISTORY: POSSIBLE SEPSIS TECHNIQUE: Single view COMPARISON: 10/12/2018 FINDINGS: The lungs are well expanded. The heart is mildly enlarged. Left pacemaker. The vessels are not distended. There are no infiltrates. No effusion identified. IMPRESSION: No pneumonia Electronically signed by Kirt Rod 04/25/2019 6:52 PM 04/25/191851 Interpreting Physician: Kirt Rod MD Dictated Date/Time: 04/25/191851 cc: Madie Alberto MD; Mak Camara MD) - CHANGE OF SHIFT REPORT (ED Provider) 1 Report Given and Care Transferred to:: Dr Caro Time of Transfer: 19:00 Items Pending: Labs, XRAY Results, CT/MRI Results Departure - Departure Referrals and Follow-Ups: Mak Camara MD [Primary Care Provider] - Attestation - Physician/ OWEN Attestation Patient care was provided by Advanced Practice Provider:: No The physician spent face to face time with patient:: Yes Advanced Practice Provider documentation review:: Supervising physician onsite and consulted in the evaluation and care of this patient. The physician did have a face to face encounter with the patient. This chart was documented by the indicated scribe, (Banes,Sanjuana D, Scribe) and accurately reflects the services I performed and decisions made by me, Madie Alberto MD, as attested by the provider's signature.
[2019-04-25 19:12] LABS: ALB/GLOB RATIO 1.8; ALBUMIN 3.8 g/dL (3.5-5.0); CALCIUM 8.5 mg/dL (8.8-10.2); CREATININE 1.3 mg/dL (0.5-0.9); POTASSIUM 3.7 mmol/L (3.5-5.1); TOTAL BILIRUBIN 2.71 mg/dL (0.20-1.00); TOTAL PROTEIN 5.9 g/dL (6.3-8.3)
[2019-04-25 19:37] LABS: CK INDEX 0.8 (0.0-2.5)
--- NOTE | 2019-04-25 20:19 | Diag Imaging Result Doc PS360 ---
EXAM: CT HEAD W/O CONTRAST HISTORY: head injury TECHNIQUE: CT head without contrast COMPARISON: 04/20/2019 FINDINGS: No parenchymal hemorrhage. No epidural or subdural hematoma. No subarachnoid hemorrhage. 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 This is unchanged. There is mild atrophy with chronic microvascular ischemic changes. No mass identified on this noncontrasted exam. No hydrocephalus. No skull fracture is. IMPRESSION: No acute injury This exam was performed using automated exposure control, adjustment of mA or kV according to patient size, and/or use of iterative reconstruction technique. Electronically signed by Kirt Rod 04/25/2019 8:16 PM
--- NOTE | 2019-04-25 20:25 | Diag Imaging Result Doc PS360 ---
EXAM: CT ABDOMEN/PELVIS W/O CONTRAST HISTORY: abd pain TECHNIQUE: CT abdomen and pelvis without oral or intravenous contrast COMPARISON: None. FINDINGS: Trace right pleural fluid with basilar atelectasis or small infiltrates. The gallbladder has been removed and there is pneumobilia. The spleen measures 7.7 x 16.0 x 11.3 cm. Small hiatal hernia. No focal pancreatic normality. Normal adrenal glands. No renal stones. No hydronephrosis. Severe atherosclerosis. There is stool throughout the colon. No bowel obstruction. There are scattered diverticula. Normal appendix. No abscess. The uterus has been removed. The urinary bladder is distended and appears normal. No pelvic mass. Mild scoliosis with degenerative spine changes. IMPRESSION: 1.Tiny right effusion with basilar atelectasis or infiltrates 2.Cholecystectomy with pneumobilia 3.Small hiatal hernia 4.Splenomegaly 5.Colonic diverticulosis 6.Severe atherosclerosis 7.Hysterectomy 8.Mild periadrenal inflammatory fat, but no adrenal nodules This exam was performed using automated exposure control, adjustment of mA or kV according to patient size, and/or use of iterative reconstruction technique. Electronically signed by Kirt Rod 04/25/2019 8:23 PM
[2019-04-25 20:30] LABS: URINE SOURCE CATH
[2019-04-25 20:35] LABS: BILIRUBIN URINE NEGATIVE (NEGATIVE); BLOOD URINE SMALL (NEGATIVE); COLOR YELLOW; GLUCOSE URINE NEGATIVE (NEGATIVE); KETONE URINE NEGATIVE (NEGATIVE); LEUKOCYTES URINE MODERATE (NEGATIVE); NITRITE URINE NEGATIVE (NEGATIVE); PROTEIN URINE 50 mg/dL (NEGATIVE); SP GRAVITY URINE 1.013; TURBIDITY URINE HAZY (CLEAR); UROBILINOGEN URINE 6 mg/dL (NORMAL)
[2019-04-25 20:42] LABS: UR EPITHELIAL CELLS <10 /HPF (<10); URINE BACTERIA 4+ /HPF; URINE CASTS NONE SEEN; URINE CRYSTALS NONE SEEN; URINE RBC <10 /HPF (<10); URINE SMALL ROUND CELLS NONE SEEN; URINE WBC 20-40 /HPF (<10)
[2019-04-25] MEDS: LEVAQUIN 750 MG/D5W 750 MG/150 ML IVPB IV ONE ×2 (21:41→21:46)
[2019-04-25] MEDS ORDERED: ZOFRAN IV ONE (21:51)
[2019-04-25] MEDS ORDERED: ZOFRAN ONE (21:54)
[2019-04-25] MEDS ORDERED: TYLENOL PO PRN (23:20)
[2019-04-25] MEDS ORDERED: ZOFRAN IV PRN (23:20)
[2019-04-25] MEDS: NS 1,000 ML IV SCH (23:39)
--- NOTE | 2019-04-26 00:17 | HISTORY AND PHYSICAL ---
PRIMARY CARE PHYSICIAN: Dr. Camara. CHIEF COMPLAINT: Chills, not feeling well x3 days. HISTORY OF PRESENTING ILLNESS: An 83-year-old elderly female with a history of GERD, hyperlipidemia, hypothyroidism, atrial fibrillation and carotid disease, who presented to emergency department with 3 days history of having chills and feeling weak. The patient was seen in the ED. She was found to be hypotensive with a systolic blood pressure around 74. She was given IV fluid bolus and it was suspected possibly she had pneumonia and early sepsis. Due to her presenting symptoms, she will require admission for further management. At the time of my examination, patient denied any headache, fever, nausea, vomiting, diarrhea, or any weight changes, but complained of having chills and not feeling well. PAST MEDICAL HISTORY: Includes diverticulosis, GERD, glaucoma, hyperlipidemia, hypothyroidism, atrial fibrillation status post cardioversion, right carotid disease. PAST SURGICAL HISTORY: Cholecystectomy, permanent pacemaker, hysterectomy, cystocele repair. ALLERGIES: Penicillin. CURRENT MEDICATIONS: Eliquis 5 mg p.o. b.i.d., atorvastatin 40 mg p.o. at bedtime, diltiazem CD 180 mg p.o. b.i.d., levothyroxine 100 mcg p.o. daily, omeprazole 40 mg p.o. q.a.m., oxybutynin 10 mg p.o. at bedtime, risperidone 1.5 mg p.o. at bedtime. SOCIAL HISTORY: No history of smoking, alcohol or illicit drug use. FAMILY HISTORY: Positive for coronary artery disease in father. REVIEW OF SYSTEMS: Fourteen point review of systems is listed as in HPI. Other systems negative. PHYSICAL EXAMINATION: GENERAL: Cooperative, friendly female. She is resting more comfortably now. VITAL SIGNS: Temperature 98.4 degrees, pulse 115, respirations 20, blood pressure 74/52. HEENT: Atraumatic, normocephalic. Extraocular movements intact. PERRLA. NECK: No masses. CHEST: Bibasilar rales. CARDIOVASCULAR: Regular rate and rhythm. ABDOMEN: Soft. Positive bowel sounds. EXTREMITIES: Trace edema. NEUROLOGIC: She is awake, alert, oriented x2. GENITOURINARY: No bladder distention. SKIN: Warm. LABORATORIES AND STUDIES: WBC 11.74, hemoglobin 13.6, hematocrit 39.8, platelets 113,000. Sodium 129, potassium 3.7, chloride 93, CO2 is 23, BUN is 14, creatinine is 1.3, glucose 167. CT of the head, no acute injury. Abdominal CT shows basal atelectasis or infiltrates, some splenomegaly, hysterectomy. ASSESSMENT: This is an 83-year-old elderly female with a history of diverticulosis, gastroesophageal reflux disease, hyperlipidemia, atrial fibrillation, who presented to emergency department due to patient having chills and weakness for the past 3 days. She was evaluated in the emergency department and she was found to be a hypotensive. She was given IV fluids and blood pressure improved. It was suspected possibly she had early sepsis and subsequently she will require admission for further management. 1. Suspected pneumonia. 2. Probable urinary tract infection. 3. Early sepsis. 4. Chronic atrial fibrillation 5. Hypothyroidism. PLAN: 1. We will admit patient to [facility]. 2. We will check blood cultures. Start patient on IV antibiotics. 3. We will check urine cultures. 4. We will continue with IV fluids. 5. Hold her antihypertensive agent. 6. If she becomes more hypotensive, we will start pressors with Levophed. 7. We will continue to monitor patient on telemetry and continue her anticoagulation. 8. We will continue to follow and reassess, make further recommendation based on patient's clinical course. cc: MD Chi Wick MD MTDD
[2019-04-26] MEDS: SYNTHROID PO SCH (06:21)
[2019-04-26] MEDS: PRILOSEC PO SCH (06:21)
[2019-04-26 07:24] LABS: BASO# 0.01 X1000 (0.0-0.2); BASO% 0.2 % (0.0-0.8); EOS# 0.03 X1000 (0.0-0.7); EOS% 0.5 % (0.0-10.0); HEMATOCRIT 35.1 % (37.0-47.0); HEMOGLOBIN 11.6 g/dL (12.0-16.0); LYMPH# 0.55 X1000 (1.2-3.4); LYMPH% 8.6 % (20.5-51.1); MCH 28.4 PG (27-31); MPV 11.8 FL (7.4-10.4); NEUT# 5.08 X1000 (1.4-6.5); NEUT% 79.7 % (42.2-75.2); PLT 82 X1000 (130-400); RBC 4.08 XMIL (4.2-5.4); RDW 14.2 % (11.5-14.5); WBC 6.37 X1000 (4.8-10.8)
[2019-04-26 07:49] LABS: AGAP 10; BUN 12 mg/dL (8-22); CALCIUM 7.8 mg/dL (8.8-10.2); CHLORIDE 103 mmol/L (98-107); COSMO 271; CREATININE 0.8 mg/dL (0.5-0.9); ESTIMATED GFR > 60; GLUCOSE 92 mg/dL (70-104); POTASSIUM 3.5 mmol/L (3.5-5.1); SODIUM 136 mmol/L (136-145); TCO2 23 mmol/L (25-35)
[2019-04-26] MEDS: NS 1,000 ML IV SCH ×2 (09:56→21:23)
[2019-04-26] MEDS: ELIQUIS PO SCH ×2 (09:56→21:22)
[2019-04-26] MEDS: CENTRUM TABLET PO SCH (09:56)
[2019-04-26] MEDS: VITAMIN B-12 PO SCH (09:56)
[2019-04-26] MEDS ORDERED: DULCOLAX PR ONE (10:06)
[2019-04-26] MEDS ORDERED: AZACTAM 2 GM in NS 100 ML IV SCH (10:30)
--- NOTE | 2019-04-26 10:51 | PROGRESS NOTE ---
DATE: 04/26/2019 SUBJECTIVE: Ms. Lange is an 83-year-old white female patient, admitted with fever, chills, UTI, abdominal pain. The patient found to have significant constipation. Admission history and physical noted. OBJECTIVE: Vital signs: Reviewed. Neck: Supple. No JVD. Lungs: Bibasilar crepitations. Heart: S1 and S2, irregularly irregular. Abdomen: Soft, globular. Mild tenderness epigastrium and lower abdomen. Extremities: No cyanosis, clubbing. No acute DVT. ARMED SECURITY PROFESSIONAL: Alert, awake, able to move all 4 limbs. ADMISSION LABORATORY DATA: Noted. CONSIDERATION: 1. Urinary tract infection. 2. Possible pneumonia. 3. Atrial fibrillation. 4. Hypothyroidism. We will continue IV antibiotics. Close observation. Dulcolax suppository. Advance diet. Overall plan discussed with the patient and she is in agreement. cc: MD Chi Austin MD
--- NOTE | 2019-04-26 12:13 | EKG Report ---
Test Performed on : 04/25/2019 5:52:16 PM Test Reason : AFIB Blood Pressure : / mmHG Vent. Rate : 157 BPM Atrial Rate : 170 BPM P-R Int : 000 ms QRS Dur : 134 ms QT Int : 272 ms P-R-T Axes : 000 133 -35 degrees QTc Int : 439 ms Atrial fibrillation. with rapid ventricular response. with occasional atrial-paced complexes Right bundle branch block Left posterior fascicular block Bifascicular block Inferior infarct , age undetermined Anteroseptal infarct , age undetermined T wave abnormality, consider lateral ischemia Abnormal ECG When compared with ECG of 20-APR-2019 23:17, (Unconfirmed) Vent. rate has increased BY 97 BPM Left posterior fascicular block is now present Anteroseptal infarct is now present T wave inversion now evident in Lateral leads Unconfirmed Result
[2019-04-26] MEDS: CARDIZEM CD PO SCH (12:20)
[2019-04-26] MEDS: AZACTAM 2 GM in NS 100 ML IV SCH ×2 (12:53→18:41)
--- NOTE | 2019-04-26 15:58 | CONSULTATION ---
DATE OF CONSULTATION: 04/26/2019 Ms Jessy Lange is an 83-year-old white female who was admitted through our emergency department yesterday evening. She is a patient Dr. Bianka Camara. On admission she complained of atrial fibrillation and there was also a sepsis alert. She had some complaints of some abdominal pain. She underwent a CT scan of her abdomen and pelvis which really just suggested cholecystectomy and constipation. We were asked to see her. 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 MEDICATIONS: Risperdal, Lipitor, vitamin B12, vitamin D2, oxybutynin, Prilosec, Eliquis, Synthroid, multivitamin, Cardizem. ALLERGIES: Penicillin. SOCIAL HISTORY: She had family at her bedside. She does not smoke. REVIEW OF SYSTEMS: A 14-point review of systems was performed and essentially is negative except for the history of present illness. FAMILY HISTORY: Was reviewed with the patient. It was noncontributory. EXAM: Ms. Lange is awake. She is in no acute distress. She weighs 152 pounds, 5 feet 2 inches. She has no focal deficits. Her heart rate 77, blood pressure 129/54, O2 saturation 99%. She is afebrile.HEENT: There is no evidence of jaundice. She has no oral lesions. No cervical lymphadenopathy. Her heart has an irregular rate. Lungs: Clear. Abdomen: Slightly distended but does not appear to be tender. There is no hernia, no costovertebral tenderness. Rectal exam was not performed. She just had a bowel movement as reported by the nurses. She has palpable femoral pulses. She has no significant edema. Neurological: She has no focal deficits. DIAGNOSTIC DATA: When she was admitted her white blood cell count was 11.7 but is back to normal today on IV Levaquin. A CT scan was reviewed shows constipation. Of note her total bilirubin was elevated at 2.71. Her electrolytes this morning are improved, BUN is 12, creatinine 0.8. A chest x-ray was clear. IMPRESSION: Abdominal pain, questionable etiology, improved white blood cell count and clinically on IV Levaquin, elevated total bilirubin, status post cholecystectomy, etiology of this unknown. It is being checked tomorrow by Dr. Galeano. She is tolerating a full liquid diet at this time and I agree with a diet and advancing it as tolerated. cc: MD Chi Gao MD
[2019-04-26] MEDS ORDERED: PREPARATION H OINT TOP PRN (19:12)
[2019-04-26] MEDS: LEVAQUIN 500 MG/D5W 500 MG/100 ML IVPB IV SCH (21:22)
[2019-04-26] MEDS: RISPERDAL PO SCH (21:22)
[2019-04-26] MEDS: LIPITOR PO SCH (21:22)
[2019-04-27] MEDS: AZACTAM 2 GM in NS 100 ML IV SCH ×3 (03:43→21:20)
[2019-04-27] MEDS: PRILOSEC PO SCH ×2 (05:52→06:50)
[2019-04-27] MEDS: SYNTHROID PO SCH ×2 (05:52→06:50)
[2019-04-27 06:25] LABS: BASO# 0.01 X1000 (0.0-0.2); BASO% 0.2 % (0.0-0.8); EOS# 0.05 X1000 (0.0-0.7); EOS% 0.9 % (0.0-10.0); HEMATOCRIT 33.2 % (37.0-47.0); HEMOGLOBIN 10.8 g/dL (12.0-16.0); LYMPH# 0.56 X1000 (1.2-3.4); LYMPH% 10.5 % (20.5-51.1); MCH 28.3 PG (27-31); MCHC 32.5 g/dL (33-37); MCV 86.9 FL (81-99); MONO# 0.46 X1000 (0.11-0.59); MONO% 8.6 % (1.7-9.3); MPV 11.3 FL (7.4-10.4); NEUT# 4.24 X1000 (1.4-6.5); NEUT% 79.8 % (42.2-75.2); PLT 94 X1000 (130-400); RBC 3.82 XMIL (4.2-5.4); RDW 14.1 % (11.5-14.5); WBC 5.32 X1000 (4.8-10.8)
[2019-04-27 06:48] LABS: AGAP 9; ALBUMIN 2.5 g/dL (3.5-5.0); ALKALINE PHOSPHATASE 100 U/L (32-104); BUN 8 mg/dL (8-22); CALCIUM 7.9 mg/dL (8.8-10.2); CHLORIDE 105 mmol/L (98-107); COSMO 275; CREATININE 0.8 mg/dL (0.5-0.9); ESTIMATED GFR > 60; GLUCOSE 113 mg/dL (70-104); GOT 20 U/L (10-30); GPT 17 U/L (10-36); PHOSPHORUS 2.1 mg/dL (2.7-4.5); POTASSIUM 3.6 mmol/L (3.5-5.1); SODIUM 138 mmol/L (136-145); TCO2 24 mmol/L (25-35); TOTAL BILIRUBIN 0.58 mg/dL (0.20-1.00); TOTAL PROTEIN 4.9 g/dL (6.3-8.3)
[2019-04-27] MEDS: CENTRUM TABLET PO SCH (08:18)
[2019-04-27] MEDS: VITAMIN B-12 PO SCH (08:18)
[2019-04-27] MEDS: CARDIZEM CD PO SCH (08:19)
[2019-04-27] MEDS: ELIQUIS PO SCH ×2 (08:19→21:19)
[2019-04-27] MEDS ORDERED: VITAMIN D PO SCH (09:00)
[2019-04-27] MEDS ORDERED: DUONEB (A & A) INH PRN (11:05)
--- NOTE | 2019-04-27 11:39 | PROGRESS NOTE ---
DATE: 04/27/2019 Ms. Lange is now hospital day 2, admitted with upper abdominal discomfort. CT scan showed constipation and some air in the biliary tree. Her total bilirubin was elevated, but with antibiotics, this morning her liver function tests are within normal limits. Clinically, she says her abdominal pain has resolved. She has had several bowel movements since admission. She is tolerating 50% to 75% of her meals. Her white blood cell count is now normal. Her hematocrit is stable at about 33%. Her BUN and creatinine are 8 and 0.8. Her heart rate is 76, blood pressure 126/68, O2 saturation 98%, and she is afebrile. She is receiving a full liquid diet. Will advance her diet as tolerated. She continues to receive IV antibiotics with improvement. She needs to become more active, and I will make that clear to the nurses. cc: MD Chi Gao MD
[2019-04-27] MEDS: TESSALON PO SCH ×3 (11:58→21:19)
--- NOTE | 2019-04-27 12:03 | PROGRESS NOTE ---
DATE: 04/27/2019 SUBJECTIVE: Ms. Lange is feeling some better today. Her abdominal pain is less. The patient had 3 bowel movements. She was complaining of problem with hemorrhoid. No apparent bleeding. No high-grade fever or chills. The patient does have dry cough. No nausea or vomiting. Tolerating feeding well. Patient admitted with UTI, possible pneumonia, pneumobilia, constipation. Admission history and physical noted. OBJECTIVE: Vital Signs: Blood pressure 126/68, pulse 76, respirations 17, temperature 98.8 degrees. Skin: Senile turgor. Neck: Supple. No JVD. Lungs: Bibasilar crepitations. Occasional wheezing. Cardiovascular: S1 and S2, irregularly irregular. Abdomen: Soft, globular. Tenderness is less compared to yesterday. Extremities: No cyanosis, clubbing. No acute DVT. OFFICIAL GREETER: Alert, awake, able to move all 4 limbs. LABORATORY DATA: Today, hemoglobin 10.8, hematocrit 33.2, WBC count 5.32, platelet count 94,000. Electrolytes fairly benign. CONSIDERATION: 1. Urinary tract infection. 2. Possible sepsis. One blood culture grew gram-negative rods. 3. Pneumobilia. 4. Constipation, doing better. 5. The patient does have hemorrhoid. I am going to try Anusol HC suppository. Overall, the patient is doing fair. Labs and medications reviewed. Plan discussed with the patient and family. They are in agreement. cc: MD Chi Austin MD
[2019-04-27] MEDS: ANUSOL-HC SUPP PR SCH ×2 (12:17→21:19)
[2019-04-27] MEDS: RISPERDAL PO SCH (21:19)
[2019-04-27] MEDS: LEVAQUIN 500 MG/D5W 500 MG/100 ML IVPB IV SCH (21:19)
[2019-04-27] MEDS: LIPITOR PO SCH (21:19)
[2019-04-28] MEDS: PRILOSEC PO SCH ×2 (05:55→06:02)
[2019-04-28] MEDS: AZACTAM 2 GM in NS 100 ML IV SCH ×3 (05:55→21:18)
[2019-04-28] MEDS: SYNTHROID PO SCH ×2 (05:56→06:02)
--- NOTE | 2019-04-28 07:37 | PROGRESS NOTE ---
DATE: 04/28/2019 SUBJECTIVE: Ms. Jessy Lange is now hospital day 4. She is admitted with upper abdominal pain, elevated total bilirubin, and CT scan suggested some air in the biliary tree. She has had a history of cholecystectomy. She has been placed on IV antibiotics, and clinically she has improved. Her total bilirubin is now normal. Her white blood cell count is now normal, and her upper abdominal pain has essentially resolved. She has had several bowel movements since being admitted. Her appetite is still not normal. Her heart rate is 88, blood pressure 139/65, O2 saturation 97%, she is afebrile. She is receiving IV Levaquin. Her cultures suggested Escherichia coli in her blood on 04/25/2019, and a gram- negative andrea in a urine culture on 04/25/2019. This Escherichia coli is sensitive to Levaquin. PLAN: She appears to have had a urinary tract infection. She is being treated for Escherichia coli in the blood with antibiotics, and clinically she is getting better. She is on a regular diet. cc: MD Chi Gao MD
[2019-04-28] MEDS: TESSALON PO SCH ×3 (08:16→21:19)
[2019-04-28] MEDS: ANUSOL-HC SUPP PR SCH ×2 (08:16→21:19)
[2019-04-28] MEDS: CENTRUM TABLET PO SCH (08:16)
[2019-04-28] MEDS: CARDIZEM CD PO SCH (08:16)
[2019-04-28] MEDS: ELIQUIS PO SCH ×2 (08:16→21:19)
[2019-04-28] MEDS: VITAMIN B-12 PO SCH (08:16)
--- NOTE | 2019-04-28 20:38 | Diag Imaging Result Doc PS360 ---
EXAM: THORACIC SPINE HISTORY: mid back pain TECHNIQUE: AP and lateral, three views COMPARISON: None. FINDINGS: There is good alignment to the thoracic spine. No subluxation. No degenerative bone spurring. IMPRESSION: No fracture Electronically signed by Kirt Rod 04/28/2019 8:35 PM
[2019-04-28] MEDS: MIRALAX PO SCH (21:18)
[2019-04-28] MEDS: RISPERDAL PO SCH (21:19)
[2019-04-28] MEDS: LIPITOR PO SCH (21:19)
[2019-04-28] MEDS: LEVAQUIN 500 MG/D5W 500 MG/100 ML IVPB IV SCH (21:20)
[2019-04-28] MEDS ORDERED: CALCIUM GLUCONATE 1 GM in NS 50 ML IV ONE (21:51)
[2019-04-28] MEDS: NEUTRA-PHOS PO SCH (22:08)
--- NOTE | 2019-04-28 22:38 | PROGRESS NOTE ---
DATE: 04/28/2019 SUBJECTIVE: An 83-year-old white female who was seen several times. In fact, she was seen 2 days before in my office with abdominal pain, not feeling well and blood workup was unremarkable. X- ray showed no pneumonia, basically constipation. On the following day, she had chills and rigors, tachycardic. Admitted to the hospital. The patient was admitted on 04/26/2019. Followup consultations reviewed. She has mild elevation of jaundice, thrombocytopenia is all due to urosepsis. She has E coli in the urine as well as in the blood. She also has rapid atrial fibrillation. Currently, the patient was seen twice, 1 in the morning and 1 in the evening. I discussed with the family. Now she is complaining of bandlike pain on the upper part of the abdomen, which is something new this afternoon. No focal symptoms. PAST MEDICAL HISTORY: Reviewed. PAST SURGICAL HISTORY: Reviewed. MEDICINES: Reviewed. ALLERGIES: Penicillin. PHYSICAL EXAMINATION: Vital signs: Temperature is 97.9, pulse is 86, blood pressure 123/77, 2 L nasal cannula 99%. HEENT: Atraumatic, normocephalic. Pupils equal, reactive to light. Neck: Supple. No lymphadenopathy. Chest: Bilateral air entry. Heart: Sounds are irregular. Abdomen: Belly is soft, nontender. Good bowel sounds. No peripheral edema. Neurologic: No obvious neurological deficits. INVESTIGATIONS: White cell count 5.3, hematocrit 33.2, platelets 94,000. Sodium 138, potassium 3.6, chloride 105, INR is 1.4, BUN 8, creatinine 0.8, glucose 128, calcium is 7.9, phosphorus 2.1, albumin 2.5 and LFTs were coming down. Urinalysis positive for infection, E coli in the blood as well as in the urine. Influenza was negative. CT scan of the abdomen and pelvis: Tiny effusion, cholecystectomy, pneumobilia, hiatal hernia, splenomegaly [address] head: No acute injury. EKG: Rapid atrial fibrillation with right bundle. ASSESSMENT AND PLAN: 1. Urosepsis with sepsis syndrome, severe sepsis. CT scan did not show any abnormality. Status post a sling by Dr. Mccann. Currently on IV Levaquin, aztreonam since the patient is allergic to penicillin. 2. Clinically, I did not see any evidence of pneumonia. We will repeat the chest x-ray 2 views. 3. Intermittent atrial fibrillation and probably from the sepsis. Continue telemetry rate control. 4. Right bundle branch block. 5. Status post cardioversion before. 6. 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 8. History of permanent pacemaker. 9. Overactive active bladder. PLAN OF CARE: 1. Complains of upper abdominal pain, rule out compression fracture. We will do the x-ray of thoracic spine. 2. Hiatal hernia. Continue on IV Protonix. 3. Constipation on MiraLAX. 4. Chronic atrial fibrillation, on Eliquis 5 mg p.o. b.i.d. 5. Hyperlipidemia on Lipitor. 6. For chronic atrial fibrillation control the ventricular rate by Cardizem 180 daily. 7. History of hemorrhoids on hydrocortisone suppository. 8. Hypothyroidism, on Synthroid. I appreciated Dr. Holman consult. Elevated LFTs is getting better. We will repeat the chest x-ray in the morning. Follow up on the labs. Incentive spirometry. Out of the bed with physical therapy. Discontinue Christianson and I spoke to the family with coordination care almost 35 minutes. cc: Chi Camara MD
[2019-04-29] MEDS: PRILOSEC PO SCH ×2 (05:38→06:22)
[2019-04-29] MEDS: AZACTAM 2 GM in NS 100 ML IV SCH ×2 (05:38→12:06)
[2019-04-29] MEDS: SYNTHROID PO SCH ×2 (05:38→06:22)
[2019-04-29 06:03] LABS: BASO# 0.02 X1000 (0.0-0.2); BASO% 0.3 % (0.0-0.8); EOS# 0.14 X1000 (0.0-0.7); EOS% 2.3 % (0.0-10.0); HEMATOCRIT 36.5 % (37.0-47.0); IMM GRAN# 0.02 X1000 (0.0-0.04); IMM GRAN% 0.3 % (0.0-0.5); LYMPH# 1.07 X1000 (1.2-3.4); LYMPH% 17.8 % (20.5-51.1); MCH 28.4 PG (27-31); MCHC 32.9 g/dL (33-37); MCV 86.5 FL (81-99); MONO# 0.55 X1000 (0.11-0.59); MONO% 9.2 % (1.7-9.3); MPV 11.1 FL (7.4-10.4); NEUT# 4.21 X1000 (1.4-6.5); NEUT% 70.1 % (42.2-75.2); PLT 136 X1000 (130-400); RBC 4.22 XMIL (4.2-5.4); RDW 13.7 % (11.5-14.5); WBC 6.01 X1000 (4.8-10.8)
[2019-04-29 06:20] LABS: AGAP 9; ALB/GLOB RATIO 0.9; ALBUMIN 2.8 g/dL (3.5-5.0); ALKALINE PHOSPHATASE 118 U/L (32-104); BUN 4 mg/dL (8-22); CALCIUM 8.4 mg/dL (8.8-10.2); CHLORIDE 107 mmol/L (98-107); COSMO 285; CREATININE 0.6 mg/dL (0.5-0.9); ESTIMATED GFR > 60; GLUCOSE 122 mg/dL (70-104); GOT 20 U/L (10-30); GPT 18 U/L (10-36); POTASSIUM 3.5 mmol/L (3.5-5.1); SODIUM 144 mmol/L (136-145); TCO2 28 mmol/L (25-35); TOTAL BILIRUBIN 0.41 mg/dL (0.20-1.00); TOTAL PROTEIN 5.9 g/dL (6.3-8.3)
--- NOTE | 2019-04-29 07:28 | EKG Report ---
Test Performed on : 04/29/2019 07:13:42 AM Test Reason : cp Blood Pressure : / mmHG Vent. Rate : 112 BPM Atrial Rate : 115 BPM P-R Int : 000 ms QRS Dur : 142 ms QT Int : 314 ms P-R-T Axes : 000 086 -19 degrees QTc Int : 428 ms Atrial fibrillation. with rapid ventricular response. Right bundle branch block T wave abnormality, consider inferior ischemia Abnormal ECG When compared with ECG of April 25, 2019- Ventricular rate has decreased by 45. Criteria for anteroseptal infarct is no longer present. T wave abnormalities in the lateral leads are no longer present. Confirmed by Maximiliano Mcneill MD ([id number]) on 04/30/2019 6:17:21 PM
[2019-04-29] MEDS: TESSALON PO SCH ×3 (08:06→20:26)
[2019-04-29] MEDS: VITAMIN B-12 PO SCH (08:06)
[2019-04-29] MEDS: CARDIZEM CD PO SCH (08:06)
[2019-04-29] MEDS: NEUTRA-PHOS PO SCH ×4 (08:06→20:26)
[2019-04-29] MEDS: CENTRUM TABLET PO SCH (08:06)
[2019-04-29] MEDS: ANUSOL-HC SUPP PR SCH ×2 (08:06→20:25)
[2019-04-29] MEDS: ELIQUIS PO SCH ×2 (08:06→20:26)
[2019-04-29] MEDS: MIRALAX PO SCH (08:06)
--- NOTE | 2019-04-29 10:02 | Diag Imaging Result Doc PS360 ---
EXAM: CHEST-2 VIEWS HISTORY: hypoxia TECHNIQUE: Two views COMPARISON: 04/25/2019 FINDINGS: The lungs are well expanded. The heart is not enlarged. There is a left-sided pacemaker. The vessels are not distended. There are no infiltrates. Trace pleural effusions. IMPRESSION: Trace pleural fluid Electronically signed by Kirt Rod 04/29/2019 10:00 AM
[2019-04-29] MEDS ORDERED: BLISTEX MEDICATED BERRY LIP BALM TOP PRN (13:54)
--- NOTE | 2019-04-29 16:31 | PROGRESS NOTE ---
DATE: 04/29/2019 Ms. Jessy Lange is an 83-year-old white female patient of Dr. Camara who was admitted with upper abdominal pain, and also a possible urinary tract infection. Her white blood cell count was elevated on admission. She has received IV antibiotics, and clinically she has improved. She is tolerating a diet, and her upper abdominal pain has resolved. Her heart rate 73, blood pressure 173/97, O2 saturation 100%. She is afebrile. She is having regular bowel movements. Her white blood cell count 6 and hematocrit is 36%. BUN and creatinine are 4 and 0.6. Chest x-ray is essentially clear. cc: MD Chi aGo MD
--- NOTE | 2019-04-29 19:48 | PROGRESS NOTE ---
DATE: 04/29/2019 SUBJECTIVE: The patient is still complains of radicular pain around the mid abdomen. Appreciated Dr. Holman's followup. PHYSICAL EXAMINATION: Temperature is 98.6 degrees, pulse 73. Vitals are stable.Chest: Bilateral air entry. Regular heart sounds. Back: Slightly tenderness in the midthoracic spine. Abdomen: Belly is soft, nontender. Neurological: No obvious deficits. LABS: White cell count 6, hematocrit 36, platelets 136,000. SMA-7 is normal and LFTs came back normal. ASSESSMENT AND PLAN: 1. Urosepsis, stable. Currently, he is on IV Levaquin. I am going to discontinue the aztreonam. 2. Abnormal chest x-ray looks like mild congestive heart failure. No new signs of pneumonia. 3. Atrial fibrillation. We will discuss with Dr. Scales. Currently rate controlled with diltiazem 180 daily, Eliquis 5 mg p.o. b.i.d. 4. Hiatal hernia and currently she is receiving Prilosec 20 mg daily. 5. Constipation on MiraLAX. 6. Hyperlipidemia on Lipitor. 7. If still has a mid thoracic pain, consider CT of the T-spine EGD and follow up closely. Out of the bed with physical therapy and I replaced the electrolytes, hypophosphatemia, hypocalcemia, slowly improving. Incentive spirometry as discussed. LEVEL OF DOCUMENTATION: 25 minutes. cc: Chi Camara MD
[2019-04-29] MEDS: RISPERDAL PO SCH (20:25)
[2019-04-29] MEDS: LIPITOR PO SCH (20:26)
[2019-04-29] MEDS: LEVAQUIN 500 MG/D5W 500 MG/100 ML IVPB IV SCH (20:31)
[2019-04-30] MEDS: SYNTHROID PO SCH (06:12)
[2019-04-30] MEDS: PRILOSEC PO SCH (06:12)
[2019-04-30] MEDS: CARDIZEM CD PO SCH (08:30)
[2019-04-30] MEDS: VITAMIN B-12 PO SCH (08:30)
[2019-04-30] MEDS: MIRALAX PO SCH (08:30)
[2019-04-30] MEDS: ELIQUIS PO SCH ×2 (08:30→20:55)
[2019-04-30] MEDS: ANUSOL-HC SUPP PR SCH ×2 (08:30→20:57)
[2019-04-30] MEDS: TESSALON PO SCH ×3 (08:30→20:56)
[2019-04-30] MEDS: NEUTRA-PHOS PO SCH ×4 (08:30→22:54)
[2019-04-30] MEDS: CENTRUM TABLET PO SCH (08:30)
[2019-04-30 15:48] LABS: AGAP 9; BUN 6 mg/dL (8-22); CALCIUM 8.1 mg/dL (8.8-10.2); CHLORIDE 104 mmol/L (98-107); COSMO 278; CREATININE 0.5 mg/dL (0.5-0.9); ESTIMATED GFR > 60; GLUCOSE 125 mg/dL (70-104); PHOSPHORUS 3.4 mg/dL (2.7-4.5); POTASSIUM 3.3 mmol/L (3.5-5.1); SODIUM 140 mmol/L (136-145); TCO2 27 mmol/L (25-35)
[2019-04-30] MEDS: LIPITOR PO SCH (20:56)
[2019-04-30] MEDS: RISPERDAL PO SCH (20:56)
[2019-04-30] MEDS: LEVAQUIN 500 MG/D5W 500 MG/100 ML IVPB IV SCH (20:57)
--- NOTE | 2019-04-30 22:07 | PROGRESS NOTE ---
DATE: 04/30/2019 SUBJECTIVE: The patient is still having upper abdominal pain after eating. Constipation is better. She looks stable. REVIEW OF SYSTEMS: Other than abdominal pain, no other complaints. OBJECTIVE: On exam, afebrile. Hemodynamics are stable. HEENT exam within normal limits. Neck is supple. Chest is clear. Irregular heart sounds. Belly is soft, nontender. No obvious deficits. LABORATORY DATA: Potassium 3.3. ASSESSMENT AND PLAN: 1. Chronic atrial fibrillation, stable. Rate control and anticoagulation. 2. Hypokalemia. Replace the potassium. 3. Upper abdominal discomfort. Continue on proton pump inhibitor. X-ray of thoracic spine is negative. 4. Escherichia coli sepsis, better. Continue on intravenous Levaquin. 5. Out of the bed with physical therapy. Plan to discharge on Sunday. Continue physical therapy and replace the potassium. Discussed with the family at bedside. Appreciated Dr. Holman's input. Level of documentation 25 minutes. cc: Chi Camara MD
[2019-04-30] MEDS: POTASSIUM CHLORIDE 20 MEQ/SWI 20 MEQ/100 ML IVPB IV SCH (23:08)
[2019-05-01] MEDS: PRILOSEC PO SCH ×2 (05:57→06:01)
[2019-05-01] MEDS: SYNTHROID PO SCH ×2 (05:57→06:01)
[2019-05-01] MEDS: TESSALON PO SCH ×3 (09:05→21:05)
[2019-05-01] MEDS: ELIQUIS PO SCH ×2 (09:05→21:05)
[2019-05-01] MEDS: CENTRUM TABLET PO SCH (09:05)
[2019-05-01] MEDS: CARDIZEM CD PO SCH (09:05)
[2019-05-01] MEDS: VITAMIN B-12 PO SCH (09:05)
[2019-05-01] MEDS: MIRALAX PO SCH (09:06)
[2019-05-01] MEDS: ANUSOL-HC SUPP PR SCH ×2 (09:06→21:05)
[2019-05-01] MEDS: NEUTRA-PHOS PO SCH (09:06)
[2019-05-01] MEDS: POTASSIUM CHLORIDE 20 MEQ/SWI 20 MEQ/100 ML IVPB IV SCH (09:16)
[2019-05-01] MEDS: LEVAQUIN 500 MG/D5W 500 MG/100 ML IVPB IV SCH (21:04)
[2019-05-01] MEDS: LIPITOR PO SCH (21:05)
[2019-05-01] MEDS: RISPERDAL PO SCH (21:05)
--- NOTE | 2019-05-01 21:11 | PROGRESS NOTE ---
DATE: 05/01/2019 SUBJECTIVE: Patient doing better. Some abdominal pain, otherwise no complaints. OBJECTIVE: Vital Signs: Temperature is 98. Chronic atrial fibrillation. Chest: Clear. Cardiovascular: Heart sounds are irregularly irregular. Abdomen: Belly is soft, nontender. Respiratory: On room air oxygen. LABORATORY DATA: SMA 7: Potassium 3.3. ASSESSMENT AND PLAN: 1. Hypokalemia. Complains of burning pain with potassium. Will stop. 2. Escherichia coli sepsis, better. 3. Cystocele repair by Dr. Hooper. 4. Chronic atrial fibrillation, failed cardioversion. Continue rate control and anticoagulation. 5. Out of the bed with physical therapy. Continue outpatient antibiotics for 10 days. We will assess the situation as an outpatient. We will discharge in the morning if she is stable. Appreciated Dr. Holman. LEVEL OF DOCUMENTATION: Twenty-five minutes. cc: Chi Camara MD
[2019-05-02] MEDS: SYNTHROID PO SCH (05:59)
[2019-05-02] MEDS: PRILOSEC PO SCH (05:59)
[2019-05-02 07:41] VITALS: BP 163/120
[2019-05-02] MEDS: MIRALAX PO SCH (08:46)
[2019-05-02] MEDS: ANUSOL-HC SUPP PR SCH (08:47)
[2019-05-02] MEDS: ELIQUIS PO SCH (08:47)
[2019-05-02] MEDS: CARDIZEM CD PO SCH (08:47)
[2019-05-02] MEDS: TESSALON PO SCH (08:47)
[2019-05-02] MEDS: CENTRUM TABLET PO SCH (08:47)
[2019-05-02] MEDS: VITAMIN B-12 PO SCH (08:47)
--- NOTE | 2019-05-03 21:25 | DISCHARGE SUMMARY ---
ADMISSION DATE: 04/25/2019 DISCHARGE DATE: 05/02/2019 DISCHARGING DIAGNOSIS: Acute metabolic encephalopathy due to urosepsis due to Escherichia coli Extended-Spectrum Beta-Lactamase (ESBL)-negative. SECONDARY DIAGNOSES: 1. Multiple urinary tract infections with prior history of sling procedure for cystocele by Dr. Hooper. 2. Pneumobilia, asymptomatic. 3. Chronic atrial fibrillation, failed cardioversion under the care of Dr. Scales. 4. Diverticulosis. 5. Acid reflux disease. 6. Glaucoma. 7. Hyperlipidemia. 8. Hypothyroidism. 9. Right internal carotid occlusion, 100%. 10. Chronic right bundle branch block. 11. Metabolic syndrome. 12. Overactive bladder. 13. History of permanent pacemaker. 14. History of Cordarone-induced hyperthyroidism. CONSULTS: Dr. Holman. BRIEF HISTORY: Please see the history and physical that was done by hospitalist. In brief, she is an 83-year-old white female, was seen in my office a couple of days ago with not feeling well, abdominal pain right across the belly. I did workup and CBC, SMA 7 were normal. Flat and upright of the abdomen showed constipation. Urine dipstick was negative. The patient was sent home on laxatives. In the meantime, after 24 hours, she started having chills and rigors. She had rapid atrial fibrillation and thrombocytopenia, elevated LFTs, and came to the hospital. Basically all the symptoms are due to urosepsis. There was a concern about elevated LFTs, pneumobilia, prior history of cholecystectomy. Surgical consult was obtained by Dr. Holman. The pain is a little bit in the upper abdominal area like a bandlike feeling after eating the food. She has a history of sliding hiatal hernia. I did a thoracic spine, did not show any acute bony compression fractures. Blood cultures, urine cultures positive for Escherichia coli. In fact, the urine cultures came back from my office on 04/24, also showed E coli. The patient was given IV antibiotics with Levaquin and Aztreonam. Initially, there was a question of infiltrate in the left lower lobe. This is all a little bit decompensated heart failure with rapid atrial fibrillation from the sepsis. The patient did a miraculous recovery. She has good bowel movements. All the sepsis symptoms were much improved. Family wants a second opinion as an outpatient for recurrent UTI with a urogynecologist. As far as atrial fibrillation is failed. Dr. Scales recommended rate control since she had a pacemaker and also anticoagulation to prevent strokes. The patient came back to the baseline. LABORATORIES: At the time of discharge: White cell count 6, hematocrit 36.5, platelet count 136,000. Sodium 140, potassium 3.3, chloride 104, BUN 6, creatinine 0.5, glucose 135, calcium 8.1, bilirubin 0.4, alkaline phosphatase 118. Repeat urine cultures were negative and it showed blood cultures as well as the urine with Escherichia coli and ESBL-negative sensitive to Levaquin. DISCHARGE INSTRUCTIONS: Pneumococcal vaccine 13 was given 09/23/2017. Risperdal 3 mg, half a tablet at bedtime, Lipitor 40 daily, vitamin B12 1000 mcg daily, vitamin D 40936 units once a week, and Eliquis 5 mg p.o. b.i.d. Discontinue oxybutynin, that might cause holding of the urine, causing the infection. Synthroid 100 mcg daily, multivitamin 1 tablet daily, Cardizem CD 180 p.o. b.i.d. Prilosec 40 in the morning, Lanoxin 125 daily, Levaquin 500 daily for 10 days. Follow up in my office next week. cc: MD Dr. Manda Avery
== END 2019-05-02 12:00 | disposition home or self-care (01) | DRG 871 ==
LOC: ED 17:37 → SUATTDRO 22:05 → 2N 22:05
PROVIDERS: ADMIT Internal Medicine; ATTEND Internal Medicine